=== PATIENT | female | born 1980 | race Caucasian/White ===

== ENCOUNTER → 2017-10-25 | Outpatient (CLI) | payer OTHER ==
--- NOTE | 2017-10-25 08:15 | US ---
EXAMINATION TYPE: US abdomen limited DATE OF EXAM: 10/25/2017 COMPARISON: CTA chest January 30, 2012 CLINICAL HISTORY: R94.5 Abn liver function test R22.32 Left arm mass. Elevated LFT's EXAM MEASUREMENTS: Liver Length: 15.5 cm Gallbladder Wall: 0.2 cm CBD: 0.4 cm Right Kidney: 11.0 x 4.8 x 4.9 cm Larger pt body habitus and pt very gassy, somewhat difficult exam Pancreas: Body wnl, head and tail obscured by overlying bowel gas Liver: Visualized portions appeared heterogeneous Gallbladder: Lumen clear, multiple folds Evidence for sonographic Lyn's sign: No CBD: wnl Right Kidney: Visualized portions appeared wnl Pancreas is suboptimally evaluated on images saved secondary to shadowing from overlying bowel gas. V isualized liver is heterogeneously hyperechoic likely reflecting mild diffuse fatty infiltration. No suspicious masses or ductal dilatation is seen on images saved. Gallbladder is seen with infolding bu t no shadowing mobile gallstones. Limited images right kidney show no gross hydronephrosis. IMPRESSION: Suboptimal study, suspect persistent mild diffuse fatty infiltration of liver. Imaging gu ided random biopsy for tissue analysis can be performed if desired.
--- NOTE | 2017-10-25 08:16 | US ---
EXAMINATION TYPE: US extremity nonvasc mass LT DATE OF EXAM: 10/25/2017 COMPARISON: NONE CLINICAL HISTORY: R94.5 Abn liver function test R22.32 Left arm mass. Pt states palpable lump left me dial upper arm x >1 year/ Pt states history of lipomas and lipoma removal Multiple (up to 3) hyperechoic lesions left medial upper arm at pt's palpable 1)= 1.4 x 0.7 cm (lar gest), 2)= 0.8 x 0.7 cm 3)= 1.1 x 0.6 cm In the subcutaneous tissue just below dermal layer there are poorly defined hyperechoic lesions likel y reflecting subcutaneous lipomas measured by technologist as detailed above. IMPRESSION: As above
== END | disposition home or self-care (01) ==
LOC: RADUSWWP 07:28
PROVIDERS: ATTEND Internal Medicine
DX: R94.5 Abnormal results of liver function studies (principal); R22.32 Localized swelling, mass and lump, left upper limb
CPT/HCPCS: 76705

== ENCOUNTER → 2019-12-19 | Outpatient (CLI) | payer OTHER ==
[2019-12-19 20:50] LABS: T4, Free (Free Thyroxine) 1.2 ng/dL (0.80-1.80)
[2019-12-19 21:03] LABS: Albumin 4.1 g/dL (3.80-4.90); Albumin/Globulin Ratio 1.52 (1.60-3.17); Bilirubin, Conjugated 0.3 mg/dL (0.20-0.40); Bilirubin,Unconjugated 0.5 mg/dL; Globulin 2.7 g/dL (1.6-3.3); Total Bilirubin 0.8 mg/dL (0.2-1.2); Total Protein 6.8 g/dL (6.2-8.2)
[2019-12-19 21:53] LABS: Hemoglobin A1C 8.1 % (4.0-6.0)
[2019-12-21 21:41] LABS: Hepatitis A Antibody IgM Non-Reactive (Non-Reactive); Hepatitis B Core IgM Non-Reactive (Non-Reactive); Hepatitis B Surface Antigen Non-Reactive (Non-Reactive); Hepatitis C IgG Antibody Non-Reactive (Non-Reactive)
== END | disposition home or self-care (01) ==
LOC: LABWHC1 10:59
PROVIDERS: ATTEND Internal Medicine
DX: E11.9 Type 2 diabetes mellitus without complications (principal); E66.9 Obesity, unspecified; R94.5 Abnormal results of liver function studies
CPT/HCPCS: 36415; 80074; 80076; 83036; 84439; 84443; 84481

== ENCOUNTER → 2020-01-04 | Outpatient (CLI) | payer OTHER ==
[2020-01-04 13:38] LABS: Basophils # (A) 0.1 k/uL (0-0.2); Basophils % (A) 1 %; Eosinophils # (A) 0.1 k/uL (0-0.7); Eosinophils % (A) 1 %; HCT 43.6 % (34.0-46.0); HGB 14.7 gm/dL (11.4-16.0); Lymphocytes # (A) 2.1 k/uL (1.0-4.8); Lymphocytes % (A) 27 %; MCH 29.3 pg (25.0-35.0); MCHC 33.6 g/dL (31.0-37.0); Mean Platelet Volume 8.7; Monocytes # (A) 0.3 k/uL (0-1.0); Monocytes % (A) 4 %; Neutrophils % (A) 66 %; Platelet Count 238 k/uL (150-450); RBC 5.01 m/uL (3.80-5.40); RDW 13.2 % (11.5-15.5); WBC 7.6 k/uL (3.8-10.6)
[2020-01-04 13:45] LABS: ALT 205 U/L (4-34); AST 150 U/L (14-36); African American GFR (CKD) >90 (>60 ml/min/1.73 sqM); Albumin 4.1 g/dL (3.5-5.0); Alkaline Phosphatase 80 U/L (38-126); Anion Gap 9 mmol/L; Blood Urea Nitrogen 10 mg/dL (7-17); Calcium 9.1 mg/dL (8.4-10.2); Carbon Dioxide 24 mmol/L (22-30); Chloride 104 mmol/L (98-107); Glucose 134 mg/dL (74-99); INR 1.1 (<1.2); Non-African American GFR(CKD) >90 (>60 ml/min/1.73 sqM); Potassium 4.1 mmol/L (3.5-5.1); Sodium 137 mmol/L (137-145); Total Bilirubin 1.4 mg/dL (0.2-1.3); Total Protein 7.3 g/dL (6.3-8.2)
[2020-01-04 19:24] LABS: Protein, Total 6.9 g/dL (6.2-8.2)
[2020-01-04 19:25] LABS: % Iron Saturation 35.67 (12.00-45.00); Iron 127 ug/dL (50-170); Total Iron Binding Capacity 356 ug/dL (228-460)
[2020-01-04 20:22] LABS: Hepatitis A Antibody IgM Non-Reactive (Non-Reactive); Hepatitis B Core IgM Non-Reactive (Non-Reactive); Hepatitis B Surface Antigen Non-Reactive (Non-Reactive); Hepatitis C IgG Antibody Non-Reactive (Non-Reactive)
[2020-01-05 10:02] LABS: Ceruloplasmin 32.9 mg/dL (20.0-60.0)
[2020-01-07 12:28] LABS: Albumin 3.87 g/dL (3.80-4.90)
[2020-01-07 14:26] LABS: Liver/Kidney Microsome Antibod 1.1 UNITS (<=20)
== END | disposition home or self-care (01) ==
LOC: LABT 11:26
PROVIDERS: ATTEND Nurse Practitioner
DX: R74.8 Abnormal levels of other serum enzymes (principal)
CPT/HCPCS: 80053; 80074; 81596; 82103; 82390; 82728; 83516; 83540; 83550; 84165; 85025; 85610; 86038; 86376

== ENCOUNTER → 2020-01-23 | Outpatient (CLI) | payer OTHER ==
--- NOTE | 2020-01-23 13:28 | US ---
EXAMINATION TYPE: US liver DATE OF EXAM: 01/23/2020 COMPARISON: NONE CLINICAL HISTORY: R74.8 ABN LIVER ENZYMES. EXAM MEASUREMENTS: Liver Length: 17.3 cm Gallbladder Wall: 0.2 cm CBD: 0.3 cm Right Kidney: 11.0 x 4.8 x 5.5 cm Extensive midline bowel gas, morbidly obese patient. Technically difficult study. Pancreas: Tail obscured by overlying bowel gas Liver: Increased attenuation, decreased visualization of vessels suggestive of fatty infiltrate Gallbladder: wnl Evidence for sonographic Lyn's sign: no CBD: wnl Right Kidney: wnl IMPRESSION: 1. Visualized abdomen ultrasound is unremarkable. There is limitation bowel gas.
== END | disposition home or self-care (01) ==
LOC: RADUSWWP 08:16
PROVIDERS: ATTEND Internal Medicine Gastroenterology
DX: R14.3 Flatulence (principal)
CPT/HCPCS: 76705

== ENCOUNTER 2020-07-14 21:51 | Emergency (ER) | payer OTHER ==
[2020-07-14] MEDS ORDERED: DIAZEPAM 5 MG/ML 2 ML INJ IM ONE (22:15)
[2020-07-14] MEDS ORDERED: HYDROmorphone 1 MG/ML 1 ML SYRINGE IM STA (22:15)
[2020-07-14] MEDS ORDERED: KETOROLAC 15 MG/ML 1 ML VIAL IM STA (22:15)
--- NOTE | 2020-07-14 22:38 | ED ---
Back Pain HPI - General Chief Complaint: Back Pain/Injury Stated Complaint: Back pain Time Seen by Provider: 07/14/20 22:02 Source: patient Limitations: no limitations - History of Present Illness Initial Comments: 40 year-old female patient presents to the emergency department for evaluation of back pain from the lower thoracic level down to the low back. She reports radiation down the back of both legs to her knee. She denies numbness or tingling to the lower extremities. Denies saddle anesthesia or loss of bowel or bladder control. Did symptoms started on Tuesday with pain to the left low back is radiating down the left leg. States he has been adjustment by the chiropractor today and afterwards her pain seemed to worsen and now is going down both legs. Denies fever but states she has been chilled. Denies any hematuria, dysuria, urinary frequency, urinary urgency. States that the pain is at its worst she does have some nausea. Denies vomiting. Denies constipation or diarrhea. Denies any abdominal pain. Patient denies any recent rash, cough, shortness of breath, chest pain, dizziness, weakness, headache, visual changes, or any other complaints. - Related Data Home Medications Medication Instructions Recorded Confirmed Ibuprofen [Motrin Ib] 400 - 600 mg PO Q4-6H PRN 07/14/20 07/14/20 Previous Rx's Medication Instructions Recorded Cyclobenzaprine [Flexeril] 10 mg PO TID #20 tab 07/14/20 Allergies Allergy/AdvReac Type Severity Reaction Status Date / Time No Known Allergies Allergy Verified 07/14/20 22:29 Review of Systems ROS Statement: Those systems with pertinent positive or pertinent negative responses have been documented in the HPI. ROS Other: All systems not noted in ROS Statement are negative. Past Medical History Past Medical History: No Reported History History of Any Multi-Drug Resistant Organisms: None Reported Past Surgical History: Section Past Psychological History: Depression Smoking Status: Never smoker Past Alcohol Use History: Rare Past Drug Use History: None Reported General Exam Limitations: no limitations General appearance: alert, in no apparent distress, other (This is a well- developed, well-nourished adult female patient in no acute distress. Vital signs upon presentation are temperature 99.6F, pulse 88, respirations 20, blood pressure 144/43, pulse ox 98% on room air.) Eye exam: Present: normal appearance, PERRL, EOMI. Absent: scleral icterus, conjunctival injection, periorbital swelling ENT exam: Present: normal exam, normal oropharynx, mucous membranes moist Respiratory exam: Present: normal lung sounds bilaterally. Absent: respiratory distress, wheezes, rales, rhonchi, stridor Cardiovascular Exam: Present: regular rate, normal rhythm, normal heart sounds. Absent: systolic murmur, diastolic murmur, rubs, gallop, clicks GI/Abdominal exam: Present: soft, normal bowel sounds. Absent: distended, tenderness, guarding, rebound, rigid Extremities exam: Present: normal inspection, full ROM, normal capillary refill, other (Skin to the lower extremities is pink, warm, dry. Cap refills less than 3 seconds. Pedal and posttibial pulses are 2+ and equal bilaterally.). Absent: tenderness, pedal edema, joint swelling, calf tenderness Back exam: Present: normal inspection. Absent: vertebral tenderness Neurological exam: Present: alert, oriented X3, CN II-XII intact Psychiatric exam: Present: normal affect, normal mood Skin exam: Present: warm, dry, intact, normal color. Absent: rash Course Vital Signs 07/14/20 21:55 Temperature 99.6 F Pulse Rate 88 Respiratory 20 Rate Blood Pressure 144/43 O2 Sat by Pulse 98 Oximetry Medical Decision Making - Medical Decision Making 40-year-old female patient presented to the emergency department today for evaluation of increased back pain. Reported pain radiating from the lower thoracic level down to her bilateral hips and down to the backs of her knees. She denies any injury. Physical examination is relatively unremarkable. She had no vertebral tenderness. No CVA tenderness. Neurovascular status was intact to the lower extremities. She is afebrile normal vital signs. Urinalysis was obtained and did have greater than 182 red blood cells though patient is on her period. There is no presence of bacteria or leukocyte esterase concerning for infection. She was given IM medications for symptom relief. Upon reevaluation she is resting comfortably in bed area and she states all of her symptoms have resolved. She'll be discharged. Her primary care physician for recheck in 1-2 days. She is instructed to follow-up with the technical sales support specialist if her symptoms do not improve over the next week. She is instructed to return for any new, worsening, or concerning symptoms. She verbalizes understanding and agrees with this plan. - Lab Data Lab Results 07/14/20 07/14/20 Range/Units 22:41 22:41 Urine Color Red Urine Appearance Clear (Clear) Urine pH 7.5 (5.0-8.0) Ur Specific [place] 1.013 (1.001-1.035) Urine Protein 1+ H (Negative) Urine Glucose (UA) 4+ H (Negative) Urine Ketones Negative (Negative) Urine Blood Large H (Negative) Urine Nitrite Negative (Negative) Urine Bilirubin Negative (Negative) Urine Urobilinogen <2.0 (<2.0) mg/dL Ur Leukocyte Esterase Trace H (Negative) Urine RBC >182 H (0-5) /hpf Urine WBC 1 (0-5) /hpf Urine HCG, Qual Not Detected (Not Detectd) Disposition Clinical Impression: Lumbar radiculopathy, Low back pain Disposition: HOME SELF-CARE Condition: Good Instructions (If sedation given, give patient instructions): Acute Low Back Pain (ED), Lumbar Radiculopathy (ED), Lower Back Exercises (ED) Additional Instructions: Take medications as directed. Follow up with your primary care physician for recheck in 1-2 days. If pain symptoms persist follow-up with technical sales support specialist. Return to the emergency department for any new, worsening, or concerning symptoms. Prescriptions: Cyclobenzaprine [Flexeril] 10 mg PO TID #20 tab Is patient prescribed a controlled substance at d/c from ED?: No Referrals: Devon Glover MD [Primary Care Provider] - 1-2 days Sophia Rojas DO [Doctor of Osteopathic Medicine] - 1-2 days Time of Disposition: 23:24
[2020-07-14 22:53] LABS: Appearance,Urine Clear (Clear); Bilirubin,Urine Negative (Negative); Blood,Urine Large (Negative); Color,Urine Red; Glucose,Urine (UA) 4+ (Negative); Ketones,Urine Negative (Negative); Leukocyte Esterase,Urine Trace (Negative); Nitrite,Urine Negative (Negative); PH, Urine 7.5 (5.0-8.0); Protein,Urine 1+ (Negative); RBC,Urine >182 /hpf (0-5); Specific Gravity,Urine 1.013 (1.001-1.035); Urobilinogen,Urine <2.0 mg/dL (<2.0); WBC,Urine 1 /hpf (0-5)
[2020-07-14] MEDS ORDERED: ACET/COD 300 MG/30 MG STARTER PACK 6 TAB BTL PO STA (23:24)
[2020-07-14] MEDS ORDERED: CYCLOBENZAPRINE 10MG STARTER 3 TAB BTL PO STA (23:24)
[2020-07-14 23:43] VITALS: BP 121/78; PULSE 85; RESP 18; TEMP 99
== END 2020-07-14 23:43 | disposition home or self-care (01) ==
LOC: EC 21:51
DX: M54.16 Radiculopathy, lumbar region (principal)
CPT/HCPCS: 81001; 81025; 99283; 96372 ×3; J3360; J1170; J1885

== ENCOUNTER → 2022-12-13 | Outpatient (CLI) | payer OTHER ==
--- NOTE | 2022-12-13 08:04 | US ---
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 IMPRESSION: No thyroid nodules, thyroid gland is within normal limits for size.
== END | disposition home or self-care (01) ==
LOC: RADUSWWP 07:28
PROVIDERS: ATTEND Family Medicine
DX: E01.0 Iodine-deficiency related diffuse (endemic) goiter (principal)
CPT/HCPCS: 76536

== ENCOUNTER 2023-01-23 19:09 | Emergency (ER) | payer OTHER ==
[2023-01-23 19:31] VITALS: TEMP 98.2
[2023-01-23] MEDS ORDERED: ACETAMINOPHEN TAB 500 MG TAB PO STA (21:00)
--- NOTE | 2023-01-23 21:07 | ED ---
Chest Pain HPI - General Chief Complaint: Chest Pain Stated Complaint: Chest Pain/Back Pain Time Seen by Provider: 01/23/23 20:47 Source: patient Mode of arrival: ambulatory Limitations: no limitations - History of Present Illness Initial Comments: -year-old female with past medical history significant for type 2 diabetes presents to ED with a chief complaint of "everything hurts". Patient states approximately 5 days ago started to experience pain of her upper chest and back that has been worsening in severity. Pain is sharp in nature. Additionally states that since onset of this feels like the joints of her hands and legs are "stiff and weak". No alleviating or aggravating doctors. Has been taking ibuprofen and Tylenol with no relief of symptoms. No other complaints. Denies shortness of breath - Related Data Home Medications Medication Instructions Recorded Confirmed Ibuprofen [Motrin Ib] 400 - 600 mg PO Q4-6H PRN 07/14/20 07/14/20 Previous Rx's Medication Instructions Recorded Cyclobenzaprine [Flexeril] 10 mg PO TID #20 tab 07/14/20 Allergies Allergy/AdvReac Type Severity Reaction Status Date / Time No Known Allergies Allergy Verified 01/23/23 19:31 Review of Systems ROS Statement: Those systems with pertinent positive or pertinent negative responses have been documented in the HPI. ROS Other: All systems not noted in ROS Statement are negative. Past Medical History Past Medical History: Diabetes Mellitus History of Any Multi-Drug Resistant Organisms: None Reported Past Surgical History: Section Past Psychological History: Depression Smoking Status: Never smoker Past Alcohol Use History: Occasional Past Drug Use History: None Reported General Exam Limitations: no limitations General appearance: alert Respiratory exam: Present: normal lung sounds bilaterally, other (Reducible chest wall tenderness to palpation.) Cardiovascular Exam: Present: regular rate, normal rhythm GI/Abdominal exam: Present: soft (No tenderness palpation. No rebound guarding or rigidity.) Neurological exam: Present: alert, oriented X3 Psychiatric exam: Present: anxious Skin exam: Present: warm, dry Course Vital Signs 01/23/23 19:24 Temperature 98.2 F Pulse Rate 89 Respiratory 21 Rate Blood Pressure 140/88 O2 Sat by Pulse 98 Oximetry Chest Pain MDM - MDM Was pt. sent in by a medical professional or institution (, PA, EMBEDDED FIRMWARE ENGINEER, urgent care, hospital, or residential...) When possible be specific @ -No Did you speak to anyone other than the patient for history (EMS, parent, family, police, friend...)? What history was obtained from this source @ -No Did you review nursing and triage notes (agree or disagree)? Why? @ -I reviewed and agree with nursing and triage notes Were old charts reviewed (outside hosp., previous admission, EMS record, old EKG, old radiological studies, urgent care reports/EKG's, residential records)? Report findings @ -No old charts were reviewed Differential Diagnosis (chest pain, altered mental status, abdominal pain women, abdominal pain men, vaginal bleeding, weakness, fever, dyspnea, syncope, headache, dizziness, GI bleed, back pain, seizure, CVA, palpatations, mental health, musculoskeletal)? @ -Differential Chest Pain: Stable Angina, Unstable Angina, STEMI, NSTEMI Aortic Dissection, Pneumothorax, Musculoskeletal, Esophageal Spasm GERD, Cholecystitis, Pancreatitis, Zoster, this is not meant to be an all-inclusive list. EKG interpreted by me (3pts min.). @ -EKG shows a sinus rhythm without acute ST or T-wave changes at 73 beats for minute. ND 135, QRS 86, QT/QTc 400/426. X-rays interpreted by me (1pt min.). @ -Chest x-ray showed no acute process CT interpreted by me (1pt min.). @ -None done U/S interpreted by me (1pt. min.). @ -None done What testing was considered but not performed or refused? (CT, X-rays, U/S, labs)? Why? @ -None What meds were considered but not given or refused? Why? @ -None Did you discuss the management of the patient with other professionals (professionals i.e. , PA, EMBEDDED FIRMWARE ENGINEER, lab, RT, psych nurse, geriatric social worker, gymnastic teacher, teacher, safety instruction police officer, case assistant)? Give summary @ -No Was smoking cessation discussed for >3mins.? @ -No Was critical care preformed (if so, how long)? @ -No Were there social determinants of health that impacted care today? How? (Homelessness, low income, unemployed, alcoholism, drug addiction, transportation, low edu. Level, literacy, decrease access to med. care, senior care, rehab)? @ -No Was there de-escalation of care discussed even if they declined (Discuss DNR or withdrawal of care, Hospice)? DNR status @ -No What co-morbidities impacted this encounter? (DM, HTN, Smoking, COPD, CAD, Cancer, CVA, ARF, Chemo, Hep., AIDS, mental health diagnosis, sleep apnea, morbid obesity)? @ -None Was patient admitted / discharged? Hospital course, mention meds given and route, prescriptions, significant lab abnormalities, going to OR and other pertinent info. @ -Discharge. EKG here shows no evidence of ischemia. Laboratory studies largely unremarkable including troponin. Some mild elevation of her CRP however nonspecific. Imaging studies unremarkable. Patient will be discharged home with instructions to follow up with her PCP. Discussed return precautions with patient who verbalizes agreement. Undiagnosed new problem with uncertain prognosis? @ -No Drug Therapy requiring intensive monitoring for toxicity (Heparin, Nitro, Insulin, Cardizem)? @ -No Were any procedures done? @ -No Diagnosis/symptom? @ -Myalgia Acute, or Chronic, or Acute on Chronic? @ -Acute Uncomplicated (without systemic symptoms) or Complicated (systemic symptoms)? @ -Uncomplicated Side effects of treatment? @ -No Exacerbation, Progression, or Severe Exacerbation? @ -No Poses a threat to life or bodily function? How? (Chest pain, [place], [place], pneumonia, PE, COPD, DKA, ARF, appy, cholecystitis, CVA, Diverticulitis, Homicidal, Suicidal, threat to staff... and all critical care pts) @ -No Disposition Clinical Impression: Myalgia Disposition: HOME SELF-CARE Condition: Good Instructions (If sedation given, give patient instructions): Musculoskeletal Pain (ED), Chest Pain (ED) Is patient prescribed a controlled substance at d/c from ED?: No Referrals: Olivia Meneses MD [Primary Care Provider] - 1-2 days Time of Disposition: 23:12
--- NOTE | 2023-01-23 21:44 | XR ---
EXAMINATION TYPE: XR chest 2V DATE OF EXAM: 01/23/2023 9:41 PM COMPARISON: Chest radiographs from 01/30/2012 TECHNIQUE: XR chest 2V Frontal and lateral views of the chest. CLINICAL INDICATION:Female, 42 years old with history of Chest Pain; FINDINGS: Lungs/Pleura: There is no evidence of pleural effusion, focal consolidation, or pneumothorax. Pulmonary vascularity: Unremarkable. Heart/mediastinum: Cardiomediastinal silhouette is prominent in size. Musculoskeletal: No acute osseous pathology. IMPRESSION: No acute cardiopulmonary disease/process.
[2023-01-23 21:55] LABS: Basophils % (A) 0 %; Eosinophils # (A) 0.4 k/uL (0-0.7); Eosinophils % (A) 4 %; HCT 41.2 % (34.0-46.0); HGB 13.8 gm/dL (11.4-16.0); Lymphocytes # (A) 2.1 k/uL (1.0-4.8); Lymphocytes % (A) 20 %; MCH 28.7 pg (25.0-35.0); MCHC 33.5 g/dL (31.0-37.0); MCV 85.6 fL (80.0-100.0); Mean Platelet Volume 8.9; Monocytes # (A) 0.4 k/uL (0-1.0); Monocytes % (A) 4 %; Neutrophils # (A) 7.2 k/uL (1.3-7.7); Neutrophils % (A) 71 %; Platelet Count 209 k/uL (150-450); RBC 4.81 m/uL (3.80-5.40); RDW 13.5 % (11.5-15.5); WBC 10.1 k/uL (3.8-10.6)
[2023-01-23 22:08] LABS: Partial Thromboplastin Time 24.7 sec (22.0-30.0)
[2023-01-23 22:17] LABS: ALT 36 U/L (4-34); AST 32 U/L (14-36); African American GFR (CKD) >90 (>60 ml/min/1.73 sqM); Albumin 3.7 g/dL (3.5-5.0); Alkaline Phosphatase 87 U/L (38-126); Amylase 46 U/L (30-110); Anion Gap 6 mmol/L; Blood Urea Nitrogen 12 mg/dL (7-17); C Reactive Protein 4.9 mg/dL (<1.0); Calcium 8.8 mg/dL (8.4-10.2); Carbon Dioxide 26 mmol/L (22-30); Chloride 102 mmol/L (98-107); Glucose 126 mg/dL (74-99); Lipase 52 U/L (23-300); Magnesium 1.9 mg/dL (1.6-2.3); Non-African American GFR(CKD) >90 (>60 ml/min/1.73 sqM); Potassium 3.9 mmol/L (3.5-5.1); Sodium 134 mmol/L (137-145); Total Protein 7.4 g/dL (6.3-8.2)
[2023-01-23 22:46] LABS: Appearance,Urine Clear (Clear); Bilirubin,Urine Negative (Negative); Blood,Urine Negative (Negative); Color,Urine Yellow; Glucose,Urine (UA) 1+ (Negative); Ketones,Urine 1+ (Negative); Leukocyte Esterase,Urine Negative (Negative); Nitrite,Urine Negative (Negative); PH, Urine 5.5 (5.0-8.0); Protein,Urine Trace (Negative); Specific Gravity,Urine >1.030 (1.001-1.035)
[2023-01-23 23:03] LABS: RBC,Urine 0 /hpf (0-5); WBC,Urine 0 /hpf (0-5)
[2023-01-23 23:04] LABS: Mucus,Urine Few /hpf; Squamous Epithelial Cell,Urine 28 /hpf (0-4)
[2023-01-23 23:25] VITALS: RESP 18
[2023-01-23 23:26] VITALS: BP 106/65; PULSE 73
== END 2023-01-23 23:27 | disposition home or self-care (01) ==
LOC: EC 19:09
DX: M79.10 Myalgia, unspecified site (principal); E11.9 Type 2 diabetes mellitus without complications; Z79.1 Long term (current) use of non-steroidal anti-inflammatories (NSAID); Z86.59 Personal history of other mental and behavioral disorders
CPT/HCPCS: 36415; 71046; 80053; 81003; 82150; 83690; 83735; 84484; 85025; 85610; 85730; 86140; 99285

== ENCOUNTER 2023-01-26 10:11 | Observation (INO) | payer OTHER ==
--- NOTE | 2023-01-26 12:18 | ED ---
General Adult HPI - General Chief complaint: Recheck/Abnormal Lab/Rx Stated complaint: all over pain,sent by PCP Time Seen by Provider: 01/26/23 11:39 Source: patient Mode of arrival: ambulatory Limitations: no limitations - History of Present Illness Initial comments: 4-year-old female presents to the ED with a chief complaint of body pain. Patient initially here on 01/23/23. At that time patient was noting myalgias. Patient states initially started to experience chest and back pain. However states since onset over a week started to develop "weakness and stiffness" of the hands. Patient was eventually discharged after workup here with an unremarkable chest x-ray. At that time also had findings of elevated CRP of 4.9, otherwise unremarkable laboratory workup. At that time EKG showed a normal sinus rhythm without acute ST-T wave changes. Since then, states that she saw her PCP. Patient states symptoms have been worsening and she has started to develop a rash on her elbows and right knee which are itchy. No other complaints. - Related Data Home Medications Medication Instructions Recorded Confirmed Ibuprofen [Motrin Ib] 400 - 600 mg PO Q4-6H PRN 07/14/20 07/14/20 Previous Rx's Medication Instructions Recorded Cyclobenzaprine [Flexeril] 10 mg PO TID #20 tab 07/14/20 Allergies Allergy/AdvReac Type Severity Reaction Status Date / Time No Known Allergies Allergy Verified 01/26/23 10:15 Review of Systems ROS Statement: Those systems with pertinent positive or pertinent negative responses have been documented in the HPI. ROS Other: All systems not noted in ROS Statement are negative. Past Medical History Past Medical History: Diabetes Mellitus History of Any Multi-Drug Resistant Organisms: None Reported Past Surgical History: Section Past Psychological History: Depression Smoking Status: Never smoker Past Alcohol Use History: Occasional Past Drug Use History: None Reported General Exam Limitations: no limitations General appearance: alert, in distress Head exam: Present: atraumatic, normocephalic Eye exam: Present: normal appearance Respiratory exam: Present: normal lung sounds bilaterally Cardiovascular Exam: Present: regular rate, normal rhythm GI/Abdominal exam: Present: soft Extremities exam: Present: other (Neck) Neurological exam: Present: alert, oriented X3 Skin exam: Present: other (Maculopapular rash on the bilateral elbows and right knee. Blanches with pressure.) Course Vital Signs 01/26/23 10:13 Temperature 98.1 F Pulse Rate 104 H Respiratory 18 Rate Blood Pressure 132/87 O2 Sat by Pulse 98 Oximetry Medical Decision Making - Medical Decision Making Was pt. sent in by a medical professional or institution (LEONARD Sr, KNITTED GOODS SHAPER, urgent care, hospital, or retirement...) When possible be specific @ -No Did you speak to anyone other than the patient for history (EMS, parent, family, police, friend...)? What history was obtained from this source @ -No Did you review nursing and triage notes (agree or disagree)? Why? @ -I reviewed and agree with nursing and triage notes Were old charts reviewed (outside hosp., previous admission, EMS record, old EKG, old radiological studies, urgent care reports/EKG's, retirement records)? Report findings @ -No old charts were reviewed Differential Diagnosis (chest pain, altered mental status, abdominal pain women, abdominal pain men, vaginal bleeding, weakness, fever, dyspnea, syncope, headache, dizziness, GI bleed, back pain, seizure, CVA, palpatations, mental health, musculoskeletal)? @ -Scleroderma, rheumatoid arthritis, lupus, polymyositis, dermatomyositis. This is not meant to be an all-inclusive list. EKG interpreted by me (3pts min.). @ -None X-rays interpreted by me (1pt min.). @ -None done CT interpreted by me (1pt min.). @ -None done U/S interpreted by me (1pt. min.). @ -None done What testing was considered but not performed or refused? (CT, X-rays, U/S, labs)? Why? @ -None What meds were considered but not given or refused? Why? @ -None Did you discuss the management of the patient with other professionals (professionals i.e. LEONARD Sr, KNITTED GOODS SHAPER, lab, RT, psych nurse, social service manager, emergency response technician, teacher, aerospace engineer officer armament, case technician)? Give summary @ -Spoke with Dr. Berry, who advised that she attempted to do a direct admit however was unable to do so. States that she would like the patient admitted for pain control with consults to rheumatology and dermatology to rule out autoimmune disorder. Discussed with Dr. downs who accepts admission Was smoking cessation discussed for >3mins.? @ -No Was critical care preformed (if so, how long)? @ -No Were there social determinants of health that impacted care today? How? (Homelessness, low income, unemployed, alcoholism, drug addiction, transportation, low edu. Level, literacy, decrease access to med. care, senior care, rehab)? @ -No Was there de-escalation of care discussed even if they declined (Discuss DNR or withdrawal of care, Hospice)? DNR status @ -No What co-morbidities impacted this encounter? (DM, HTN, Smoking, COPD, CAD, Cancer, CVA, ARF, Chemo, Hep., AIDS, mental health diagnosis, sleep apnea, morbid obesity)? @ -None Was patient admitted / discharged? Hospital course, mention meds given and route, prescriptions, significant lab abnormalities, going to OR and other pertinent info. @ -Admission. Laboratory studies at this time pending however CRP, ESR, CPK, RACHEL, C3, C4, TSH, CBC, CMP ordered. She will be admitted for pain control and possible consults to Derm/rheumatology. Discussed plan of care with patient who is in agreement. Undiagnosed new problem with uncertain prognosis? @ -No Drug Therapy requiring intensive monitoring for toxicity (Heparin, Nitro, Insulin, Cardizem)? @ -No Were any procedures done? @ -No Diagnosis/symptom? @ -Myalgias with rash Acute, or Chronic, or Acute on Chronic? @ -Acute Uncomplicated (without systemic symptoms) or Complicated (systemic symptoms)? @ -Uncomplicated Side effects of treatment? @ -No Exacerbation, Progression, or Severe Exacerbation? @ -No Poses a threat to life or bodily function? How? (Chest pain, [place], [place], pneumonia, PE, COPD, DKA, ARF, appy, cholecystitis, CVA, Diverticulitis, Homicidal, Suicidal, threat to staff... and all critical care pts) @ -No Disposition Clinical Impression: Myalgia, Rash Disposition: ADMITTED IP TO THIS HOSP Condition: Good Referrals: Olivia Meneses MD [Primary Care Provider] - 1-2 days Time of Disposition: 12:30
[2023-01-26] MEDS ORDERED: MORPHINE SULFATE 4 MG/ML SYRINGE IVP STA (12:28)
[2023-01-26] MEDS ORDERED: ACETAMINOPHEN TAB 325 MG TAB PO PRN (12:42)
[2023-01-26] MEDS ORDERED: NALOXONE 0.4 MG/ML 1 ML VIAL IV PRN (12:42)
[2023-01-26] MEDS ORDERED: ONDANSETRON 4 MG/2 ML VIAL IVP PRN (12:42)
[2023-01-26] MEDS: SODIUM CHLORIDE 0.9% 1,000 ML IV SCH ×2 (13:13→23:22)
[2023-01-26 13:37] LABS: Basophils % (A) 0 %; Eosinophils # (A) 0.3 k/uL (0-0.7); Eosinophils % (A) 4 %; HCT 41.6 % (34.0-46.0); Lymphocytes # (A) 1.4 k/uL (1.0-4.8); Lymphocytes % (A) 15 %; MCHC 33.6 g/dL (31.0-37.0); MCV 86.3 fL (80.0-100.0); Mean Platelet Volume 8.3; Monocytes # (A) 0.4 k/uL (0-1.0); Monocytes % (A) 4 %; Neutrophils # (A) 7.1 k/uL (1.3-7.7); Neutrophils % (A) 75 %; Platelet Count 219 k/uL (150-450); RBC 4.82 m/uL (3.80-5.40); RDW 13.5 % (11.5-15.5); WBC 9.4 k/uL (3.8-10.6)
[2023-01-26 14:10] LABS: Potassium 4.6 mmol/L (3.5-5.1)
[2023-01-26 14:13] LABS: ALT 30 U/L (4-34); AST 32 U/L (14-36); African American GFR (CKD) >90 (>60 ml/min/1.73 sqM); Albumin 3.8 g/dL (3.5-5.0); Alkaline Phosphatase 89 U/L (38-126); Anion Gap 11 mmol/L; Blood Urea Nitrogen 7 mg/dL (7-17); C Reactive Protein 4.5 mg/dL (<1.0); Carbon Dioxide 23 mmol/L (22-30); Chloride 101 mmol/L (98-107); Glucose 147 mg/dL (74-99); Non-African American GFR(CKD) >90 (>60 ml/min/1.73 sqM); Sodium 135 mmol/L (137-145); Total Bilirubin 1.1 mg/dL (0.2-1.3); Total Protein 7.5 g/dL (6.3-8.2)
[2023-01-26] MEDS ORDERED: DEXTROSE 50% SYRINGE 50 ML IVP PRN ×2 (15:30)
--- NOTE | 2023-01-26 15:32 | P.HPIM ---
History of Present Illness H&P Date: 01/26/23 This is a 42-year-old female with medical history of diabetes who was sent in from Dr. Manjarrez's office for admission and evaluation. Patient's main complaint is joint pain and stiffness and muscle weakness progressive over the last week. Patient reports the pain started in her mid back went to see a chiropractor without relief in symptoms since then the pain has spread. She is having swelling in her left knee, behind her right leg and also in her right hand and the finger joints. Additionally patient has reported a rash which is most prominent on her bilateral knees and her right elbow which is vesicular in nature. She reports feeling so weak at home and her is having to assist her in care for all of her activities of daily living and the pain is not improving. Patient is admitted to the hospital under medicine observation status recommended for patient to be evaluated by rheumatology. Possibility of patient having a condition such as dermatomyositis. Denies chest pain, denies shortness of breath. No nausea vomiting or diarrhea. Denies recent illness however does have inflammed pharynx and reports sore throat. No fever. REVIEW OF SYSTEMS: CONSTITUTIONAL: No fever, no malaise, no fatigue. HEENT: No recent visual problems or hearing problems. Denied any sore throat. CARDIOVASCULAR: No chest pain, orthopnea, PND, no palpitations, no syncope. PULMONARY: No shortness of breath, no cough, no hemoptysis. GASTROINTESTINAL: No diarrhea, no nausea, no vomiting, no abdominal pain. NEUROLOGICAL: No headaches, no weakness, no numbness. HEMATOLOGICAL: Denies any bleeding or petechiae. GENITOURINARY: Denies any burning micturition, frequency, or urgency. MUSCULOSKELETAL/RHEUMATOLOGICAL: Denies any joint pain, swelling, or any muscle pain. ENDOCRINE: Denies any polyuria or polydipsia. The rest of the 14-point review of systems is negative. PHYSICAL EXAMINATION: GENERAL: The patient is alert and oriented x3, not in any acute distress. Well developed, well nourished. HEENT: Pupils are round and equally reacting to light. EOMI. No scleral icterus. No conjunctival pallor. Normocephalic, atraumatic. No pharyngeal erythema. No thyromegaly. CARDIOVASCULAR: S1 and S2 present. No murmurs, rubs, or gallops. PULMONARY: Chest is clear to auscultation, no wheezing or crackles. ABDOMEN: Soft, nontender, nondistended, normoactive bowel sounds. No palpable organomegaly. MUSCULOSKELETAL: No joint swelling or deformity. EXTREMITIES: No cyanosis, clubbing, or pedal edema. NEUROLOGICAL: Gross neurological examination did not reveal any focal deficits. SKIN: No rashes. Assessment and plan Multi-joint arthritis with pain and stiffness rule out conditions such as polymyalgia rheumatica however patient also has associated rash mild posterior knees can be associated with a condition like dermatomyositis Diabetes mellitus History of depression Obesity GI prophylaxis DVT prophylaxis Plan Check AMA, sed rate, CRP, CK levels Patient was started on IV steroids 40 mg every 12 hours as well as pain management Cervical thoracic and lumbar x-rays will be taken PT OT is consulted for further evaluation We'll also consult rheumatology for further evaluation The impression and plan of care has been dictated by Britt Craig Nurse Practitioner as directed. Dr. Dipti MD I have performed a history and physical examination and medical decision making of this patient, discussed the same with the dictator, and agree with the dictators assessment and plan as written, documented as a scribe. Based on total visit time, I have performed more than 50% of this visit. Past Medical History Past Medical History: Diabetes Mellitus History of Any Multi-Drug Resistant Organisms: None Reported Past Surgical History: Section Past Psychological History: Depression Smoking Status: Never smoker Past Alcohol Use History: Occasional Past Drug Use History: None Reported Medications and Allergies Home Medications Medication Instructions Recorded Confirmed Type Ibuprofen [Motrin Ib] 800 mg PO Q4-6H PRN 07/14/20 01/26/23 History Acetaminophen Tab [Tylenol Tab] 1,000 mg PO Q6HR PRN 01/26/23 01/26/23 History Dulaglutide [Trulicity] 0.75 mg SQ MO 01/26/23 01/26/23 History Metformin Er 750mg Tab 750 mg PO DAILY 01/26/23 01/26/23 History Allergies Allergy/AdvReac Type Severity Reaction Status Date / Time No Known Allergies Allergy Verified 01/26/23 13:43 Physical Exam Vitals: Vital Signs Temp Pulse Resp BP Pulse Ox 01/26/23 13:37 99.4 F 94 16 118/81 98 01/26/23 10:13 98.1 F 104 H 18 132/87 98 Intake and Output 01/26/23 01/26/23 01/26/23 06:59 14:59 22:59 Other: Weight 108.862 kg Results CBC & Chem 7: 01/26/23 13:00 01/26/23 13:00 Labs: Abnormal Lab Results - Last 24 Hours (Table) 01/26/23 Range/Units 13:00 Sodium 135 L (137-145) mmol/L Creatinine 0.39 L (0.52-1.04) mg/dL Glucose 147 H (74-99) mg/dL C-Reactive Protein 4.5 H (<1.0) mg/dL Assessment and Plan Time with Patient: Greater than 30
[2023-01-26 17:08] LABS: Glucose,Whole Blood 147 mg/dL (70-110)
--- NOTE | 2023-01-26 17:11 | XR ---
EXAMINATION TYPE: XR thoracic spine 2V DATE OF EXAM: 01/26/2023 COMPARISON: None HISTORY: Joint pain and lower extremity weakness TECHNIQUE: 3 view thoracic spine FINDINGS: There 12 thoracic type vertebral bodies. Pedicles are intact. Disc heights are preserved. V ertebral body heights are preserved. Alignment is preserved. IMPRESSION: 1. Normal three-view thoracic spine
--- NOTE | 2023-01-26 17:12 | XR ---
EXAMINATION TYPE: XR cervical spine comp DATE OF EXAM: 01/26/2023 COMPARISON: None available at this time HISTORY: Joint pain lower extremity weakness TECHNIQUE: 5 view cervical spine FINDINGS: Prevertebral space is normal. Disc heights are preserved. Vertebral body heights are [place]. Posterior spinal lamellar line is intact. Foramen are patent. IMPRESSION: 1. No acute osseous abnormality cervical spine
--- NOTE | 2023-01-26 17:13 | XR ---
EXAMINATION TYPE: XR lumbar spine 2 or 3V DATE OF EXAM: 01/26/2023 COMPARISON: None HISTORY: Low back pain lower extremity weakness TECHNIQUE: 3 view lumbar spine FINDINGS: There are 5 lumbar-type vertebral bodies. Pedicles are intact. The L5-S1 disc height is keri rowed. Remaining disc heights are preserved. Vertebral body heights are preserved. IMPRESSION: 1. Degenerative disc change L5-S1
[2023-01-26] MEDS: INSULIN ASPART (NovoLOG) 100 UNIT/ML VIAL SQ SCH ×2 (17:25→20:40)
[2023-01-26] MEDS: HYDROmorphone 1 MG/ML 1 ML SYRINGE IVP PRN ×2 (17:27→22:58)
[2023-01-26 20:23] LABS: Glucose,Whole Blood 170 mg/dL (70-110)
[2023-01-26] MEDS: PANTOPRAZOLE 40 MG/10 ML VIAL IVP SCH (20:40)
[2023-01-26] MEDS: methylPREDNISolone SOD SUCCI 40 MG/ML 1 ML VIAL IV SCH (20:40)
[2023-01-27 06:09] LABS: Glucose,Whole Blood 233 mg/dL (70-110)
[2023-01-27] MEDS: INSULIN ASPART (NovoLOG) 100 UNIT/ML VIAL SQ SCH ×4 (06:39→20:39)
[2023-01-27] MEDS: methylPREDNISolone SOD SUCCI 40 MG/ML 1 ML VIAL IV SCH ×2 (08:15→20:40)
[2023-01-27] MEDS: PANTOPRAZOLE 40 MG/10 ML VIAL IVP SCH ×2 (08:15→20:40)
[2023-01-27] MEDS: HYDROmorphone 1 MG/ML 1 ML SYRINGE IVP PRN ×3 (08:23→22:46)
[2023-01-27] MEDS: SODIUM CHLORIDE 0.9% 1,000 ML IV SCH ×2 (10:23→22:48)
[2023-01-27 11:27] LABS: Glucose,Whole Blood 228 mg/dL (70-110)
[2023-01-27] MEDS: KETOROLAC 15 MG/ML 1 ML VIAL IVP PRN (13:42)
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
[2023-01-27 17:27] LABS: Glucose,Whole Blood 295 mg/dL (70-110)
[2023-01-27 20:17] LABS: Glucose,Whole Blood 327 mg/dL (70-110)
[2023-01-28] MEDS: HYDROmorphone 0.5 MG/0.5 ML SYRINGE IVP PRN ×2 (04:34→08:00)
[2023-01-28] MEDS: SODIUM CHLORIDE 0.9% 1,000 ML IV SCH ×3 (04:59→17:40)
[2023-01-28 06:08] LABS: Glucose,Whole Blood 234 mg/dL (70-110)
[2023-01-28] MEDS: INSULIN ASPART (NovoLOG) 100 UNIT/ML VIAL SQ SCH ×5 (06:47→20:41)
[2023-01-28] MEDS: KETOROLAC 15 MG/ML 1 ML VIAL IVP PRN ×3 (06:51→20:20)
[2023-01-28] MEDS: PANTOPRAZOLE 40 MG/10 ML VIAL IVP SCH (08:01)
[2023-01-28] MEDS: methylPREDNISolone SOD SUCCI 40 MG/ML 1 ML VIAL IV SCH (08:01)
[2023-01-28 09:11] LABS: Basophils # (A) 0.02 X 10*3/uL (0.00-0.10); Basophils % (A) 0.1 %; Eosinophils # (A) 0 X 10*3/uL (0.04-0.35); Eosinophils % (A) 0 %; HCT 37.5 % (37.2-46.3); HGB 12.8 d/dL (12.0-15.0); Lymphocytes # (A) 1.29 X 10*3/uL (0.90-5.00); Lymphocytes % (A) 7.7 %; MCH 28.9 pg (27.0-32.0); MCHC 34.1 d/dL (32.0-37.0); MCV 84.7 FL (80.0-97.0); Mean Platelet Volume 10.8 FL (9.5-12.2); Monocytes # (A) 0.75 X 10*3/uL (0.20-1.00); Monocytes % (A) 4.5 %; NRBC Per 100 WBC 0 X 10*3/uL (0.00-0.01); Neutrophils # (A) 14.52 X 10*3/uL (1.80-7.70); Neutrophils % (A) 87.2 %; Platelet Count 286 X 10*3/uL (140-440); RBC 4.43 X 10*6/uL (4.10-5.20); RDW 13.2 % (11.5-14.5); WBC 16.67 X 10*3/uL (4.50-10.00)
[2023-01-28 09:17] LABS: Blood Urea Nitrogen 12.3 mg/dL (9.0-27.0); Calcium 9.1 mg/dL (8.7-10.3); Carbon Dioxide 24.9 mmol/L (21.6-31.8); Chloride 100 mmol/L (96-109); Glucose 252 mg/dL (70-110); Potassium 4.5 mmol/L (3.5-5.5); Sodium 135 mmol/L (135-145)
[2023-01-28] MEDS ORDERED: INSULIN DETEMIR (LEVEMIR) 100 UNIT/ML SYR SQ SCH (10:22)
[2023-01-28] MEDS: SENNOSIDES 8.6 MG TAB PO SCH (12:02)
[2023-01-28] MEDS: HYDROmorphone 1 MG/ML 1 ML SYRINGE IVP PRN ×3 (12:05→21:51)
[2023-01-28 12:10] LABS: Glucose,Whole Blood 293 mg/dL (70-110)
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
[2023-01-28] MEDS: methylPREDNISolone SOD SUCCI 125 MG/2 ML VIAL IV SCH ×2 (16:22→23:43)
[2023-01-28 17:17] LABS: Glucose,Whole Blood 371 mg/dL (70-110)
[2023-01-28] MEDS: PANTOPRAZOLE 40 MG TABLET PO SCH (17:42)
[2023-01-28 19:41] LABS: Anti-Smith Ab Interp Negative (Negative); EBV-EA (IgG) 0.7 AI; EBV-EBNA(IgG) 7.5; EBV-VCA (IgM) 1.3 AI; Gliadin AB IgA, Deaminated Negative (Negative); Gliadin AB IgA, Unit 0.7 U/mL; Gliadin AB IgG, Deaminated Negative (Negative); Gliadin AB IgG, Unit <0.4 U/mL
[2023-01-28 20:26] LABS: Glucose,Whole Blood 329 mg/dL (70-110)
[2023-01-28] MEDS: INSULIN DETEMIR (LEVEMIR) 100 UNIT/ML SYR SQ SCH (20:41)
[2023-01-29] MEDS: SODIUM CHLORIDE 0.9% 1,000 ML IV SCH (00:17)
[2023-01-29] MEDS: HYDROmorphone 1 MG/ML 1 ML SYRINGE IVP PRN (00:53)
[2023-01-29] MEDS: KETOROLAC 15 MG/ML 1 ML VIAL IVP PRN (02:50)
[2023-01-29 06:21] LABS: Glucose,Whole Blood 255 mg/dL (70-110)
[2023-01-29] MEDS: PANTOPRAZOLE 40 MG TABLET PO SCH (06:29)
[2023-01-29] MEDS: INSULIN ASPART (NovoLOG) 100 UNIT/ML VIAL SQ SCH ×2 (06:29→07:59)
[2023-01-29] MEDS: HYDROmorphone 0.5 MG/0.5 ML SYRINGE IVP PRN (06:32)
[2023-01-29] MEDS: SENNOSIDES 8.6 MG TAB PO SCH (07:59)
[2023-01-29] MEDS: INSULIN DETEMIR (LEVEMIR) 100 UNIT/ML SYR SQ SCH (07:59)
[2023-01-29] MEDS: methylPREDNISolone SOD SUCCI 125 MG/2 ML VIAL IV SCH (08:00)
[2023-01-29 08:48] VITALS: BP 130/80; PULSE 63; RESP 16; TEMP 98.2
[2023-01-29 09:25] LABS: Blood Urea Nitrogen 16.8 mg/dL (9.0-27.0); Calcium 8.9 mg/dL (8.7-10.3); Chloride 99 mmol/L (96-109); Glucose 266 mg/dL (70-110); Potassium 4.3 mmol/L (3.5-5.5); Sodium 134 mmol/L (135-145)
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
== END 2023-01-29 09:09 | disposition short-term general hospital (02) ==
LOC: EC 10:11 → INTOOBSV 14:10 → OBSVTOIN 14:10 → 6NMEDSUR 14:10 → UNDODISIN 01-29 09:09
PROVIDERS: ADMIT Internal Medicine; ATTEND Internal Medicine
DX: M35.3 Polymyalgia rheumatica (principal); E09.65 Drug or chemical induced diabetes mellitus with hyperglycemia; T38.0X5A Adverse effect of glucocorticoids and synthetic analogues, initial encounter; R70.0 Elevated erythrocyte sedimentation rate; G89.29 Other chronic pain; M54.2 Cervicalgia; R21 Rash and other nonspecific skin eruption; E66.9 Obesity, unspecified; M51.37 Other intervertebral disc degeneration, lumbosacral region; F32.A Depression, unspecified; Z20.822 Contact with and (suspected) exposure to COVID-19; Z79.84 Long term (current) use of oral hypoglycemic drugs; Z79.85 Long-term (current) use of injectable non-insulin antidiabetic drugs
CPT/HCPCS: 96376 ×4; 96361; 96372; 96375 ×3; 96374; 99285; 36415; 97162; 97166; 87651; 86160 ×2; 86235 ×2; 86665 ×2; 80053; 80048 ×2; 85652 ×2; 86663; 84443; 82550; 82553; 85025 ×2; 86140 ×2; 86431; 86664; 86038; 83516 ×4; 83036; 84145; 87635; 72070; 72050; 72100; G0378 ×4; J2270; J2920 ×3; J2930 ×2; J2405; J1170 ×6; J1885 ×3; C9113 ×3; 99284

== ENCOUNTER → 2023-08-04 | Outpatient (CLI) | payer OTHER ==
[2023-08-04 13:34] VITALS: BP 115/80; PULSE 88; RESP 16; TEMP 98.5; BMI 39.9
--- NOTE | 2023-08-04 17:52 | P.HPBAR ---
Bariatric H&P - History & Physicial H&P Date: 08/04/23 History & Physicial: Visit/CC: Initial Visit Patient initial contact: Initial weight: 108.862 kg Initial weight in pounds: 240.00 Height: 5 ft 5 in Initial BMI: 39.9 Last weight: Current weight: 108.862 kg Current weight in pounds: 240.00 Current BMI: 39.9 [place] body weight (based on NIH guidelines): 56.699 kg Excess body weight loss: 0.0% The patient is a 43 year-old F who presents for Bariatric Assessment. Patient seen today to discuss sleeve gastrectomy. Patient has tried a variety of different weight loss methods. Patient with history of type 2 diabetes, psoriatic arthritis, fatty liver. No history of DVT or dysphagia. No tobacco use. Minimal reflux symptoms rarely. Past surgical history includes . Patient is considering gastric bypass but does not like the long-term complication profile she says. Review of Systems The patient denies any acute changes in vision or hearing, no dysphagia or odynophagia, no chest pain or shortness of breath, no dysuria or hematuria, no headache, no runny nose, no rectal bleeding or melena, no unexplained weight loss Past Medical History Past Medical History: Diabetes Mellitus History of Any Multi-Drug Resistant Organisms: None Reported Past Surgical History: Section Past Anesthesia/Blood Transfusion Reactions: No Reported Reaction Past Psychological History: Depression Smoking Status: Former smoker Past Alcohol Use History: Occasional Past Drug Use History: None Reported Surgical - Exam Vital Signs Temp Pulse Resp BP 98.5 F 88 16 115/80 08/04/23 13:06 08/04/23 13:06 08/04/23 13:06 08/04/23 13:06 Physical exam: General: Well-developed, well-nourished HEENT: Normocephalic, sclerae nonicteric Abdomen: Nontender, nondistended Extremities: No edema Neuro: Alert and oriented Bariatric Assessment & Plan (1) Severe obesity (BMI 35.0-39.9) with comorbidity Narrative/Plan: 43-year-old female with severe obesity and comorbidities. Patient is interested in sleeve gastrectomy. Risks, benefits, and average weight loss with sleeve gastrectomy and gastric bypass discussed in detail. Pre and postoperative expectations regarding sleeve gastrectomy discussed. She would like to proceed. Will schedule for upper endoscopy as part of our preoperative workup. Check routine labs although sounds like she had recent blood work performed. Will review those. Status: Acute Bariatric Checklist Checklist: Plan: Checklist: EGD: 1. Hiatal hernia: 2. H. Pylori: HgbA1c: Vitamin D: Smoking: Current every day smoker Primary care physician referral: Dr. Manjarrez Psychiatry clearance: Cardiology clearance: Sleep study: Diet journal: VTE risk score: VTE risk level: Rehab needs at discharge:
== END ==
LOC: BARWHC3 12:43
PROVIDERS: ATTEND Surgery
DX: E66.01 Morbid (severe) obesity due to excess calories (principal); E11.9 Type 2 diabetes mellitus without complications; F32.A Depression, unspecified; F17.200 Nicotine dependence, unspecified, uncomplicated; Z68.39 Body mass index [BMI] 39.0-39.9, adult; Z79.85 Long-term (current) use of injectable non-insulin antidiabetic drugs; Z79.84 Long term (current) use of oral hypoglycemic drugs
CPT/HCPCS: 99212

== ENCOUNTER 2023-09-20 12:45 | Day surgery (SDC) | payer OTHER ==
[2023-09-15 16:19] VITALS: BMI 41.1
[~2023-09-20 12:45] MED LIST: LIDOCAINE 1% (10MG/ML) FOR IV START INTRADERMA PRN
[2023-09-20] MEDS: LACTATED RINGERS 1,000 ML IV SCH (13:25)
--- NOTE | 2023-09-20 13:34 | P.GSHP ---
History of Present Illness H&P Date: 09/20/23 Chief Complaint: GERD 43-year-old female here for upper endoscopy. Patient with mild reflux symptoms. Being evaluated for possible sleeve gastrectomy. Past Medical History Past Medical History: Diabetes Mellitus, Skin Disorder Additional Past Medical History / Comment(s): psoriatric arthritis, fatty liver History of Any Multi-Drug Resistant Organisms: None Reported Past Surgical History: Section Additional Past Surgical History / Comment(s): lympomas Past Anesthesia/Blood Transfusion Reactions: No Reported Reaction Additional Past Anesthesia/Blood Transfusion Reaction / Comment(s): no blood transfusion Smoking Status: Former smoker Medications and Allergies Home Medications Medication Instructions Recorded Confirmed Type Dulaglutide [Trulicity] 1.5 mg SQ WE 01/26/23 09/20/23 History Metformin Er 750mg Tab 750 mg PO DAILY 01/26/23 09/20/23 History Adalimumab [Humira Pen 10 mg SQ DIRECTED 08/11/23 09/20/23 History Crohn's-Uc-Hs] Ergocalciferol [Vitamin D2 (1250 50,000 unit PO WEEKLY 08/11/23 09/20/23 History Mcg = 16450 Iu)] Folic Acid 1 mg PO DAILY 08/11/23 09/20/23 History Allergies Allergy/AdvReac Type Severity Reaction Status Date / Time No Known Allergies Allergy Verified 09/20/23 13:24 Surgical - Exam Vital Signs Temp Pulse Resp BP Pulse Ox 97.6 F 89 16 128/76 99 09/20/23 13:21 09/20/23 13:21 09/20/23 13:21 09/20/23 13:21 09/20/23 13:21 Physical exam: General: Well-developed, well-nourished HEENT: Normocephalic, sclerae nonicteric Abdomen: Nontender, nondistended Extremities: No edema Neuro: Alert and oriented Assessment and Plan (1) GERD (gastroesophageal reflux disease) Narrative/Plan: Will proceed with upper endoscopy. Current Visit: Yes Status: Acute Code(s): K21.9 - GASTRO-ESOPHAGEAL REFLUX DISEASE WITHOUT ESOPHAGITIS SNOMED Code(s): 251925967
[2023-09-20] MEDS ORDERED: LIDOCAINE 1% INJ 10MG/ML (20 ML MDV) ONE (13:35)
[2023-09-20] MEDS ORDERED: PROPOFOL 10 MG/ML 20 ML VIAL IV ONE (13:35)
[2023-09-20 13:38] LABS: Glucose,Whole Blood 102 mg/dL (70-110)
[2023-09-20 13:41] VITALS: RESP 16; TEMP 97.6
--- NOTE | 2023-09-20 13:44 | P.PCN ---
Date of Procedure: 09/20/23 Procedure(s) Performed: Preoperative Dx: GERD, presurgical Postoperative Dx: Mild gastritis Procedure: EGD with Bx Anesthesia: Sedation Endoscopist: Dr. Jolly Specimens: Antrum Endoscopic Procedure: The patient was on the endoscopy table in the left decubitus position. The Olympus gastroscope was inserted into the oropharynx and passed under direct visualization to the region of the third portion of the duodenum. From that point the scope was slowly withdrawn inspecting all surfaces carefully. There were no neoplastic inflammatory or polypoid lesions throughout the duodenum. The pylorus was widely patent. The stomach was carefully inspected. There was mild gastritis in the antral region. A biopsy of the antrum took place to rule out H. pylori. Retroflexion revealed a normal hiatus. The esophagus was then carefully examined. There were no neoplastic inflammatory or polypoid lesions throughout the visualized esophagus. The patient was then taken to the recovery room in stable condition per anesthesia guidelines. Recommendations: Await biopsy results. Follow-up bariatric center.
[2023-09-20 14:17] VITALS: BP 112/66; PULSE 81
== END 2023-09-20 14:34 | disposition home or self-care (01) ==
LOC: ORWHC2ENDO 12:45
PROVIDERS: ATTEND Surgery
DX: K29.50 Unspecified chronic gastritis without bleeding (principal); K21.9 Gastro-esophageal reflux disease without esophagitis; E11.9 Type 2 diabetes mellitus without complications; F32.A Depression, unspecified; L40.50 Arthropathic psoriasis, unspecified; Z87.891 Personal history of nicotine dependence; Z79.84 Long term (current) use of oral hypoglycemic drugs; Z79.899 Other long term (current) drug therapy; Z79.85 Long-term (current) use of injectable non-insulin antidiabetic drugs
CPT/HCPCS: 81025; 88305; 43239; J2001; J2704

== ENCOUNTER → 2023-09-29 | Outpatient (CLI) | payer OTHER ==
--- NOTE | 2023-09-29 13:15 | MM ---
Reason for Exam: Screening (asymptomatic). Baseline mammogram. Patient History: Menarche at age 13. First Full-Term at age 21. Patient has history of breast feeding. Risk Values: Mirlande 5 year model risk: 0.5%. NCI Lifetime model risk: 8.0%. Prior Study Comparison: Patient's first Mammogram. Tissue Density: The breasts are heterogeneously dense, which may obscure small masses. Findings: Analyzed By CAD. Asymmetric density left 12:00 position between 5 and 6 cm from the nipple. Additional views are recommended. No mass or distortion right breast. No suspicious calcifications present. Overall Assessment: Incomplete: need additional imaging evaluation, BI-RAD 0 Management: Diagnostic Mammogram of the left breast. . Patient should continue monthly self-breast exams. A clinical breast exam by your physician is recommended on an annual basis. This exam should not preclude additional follow-up of suspicious palpable abnormalities. Note on Mirlande scores and lifetime risk: 1. A Mirlande score greater than 3% is considered moderate risk. If this is the case, consider specialist referral to assess eligibility for a risk reducing agent. 2. If overall lifetime risk for the development of breast cancer is 20% or higher, the patient may qualify for future screening with alternating mammogram and breast MRI. Electronically signed and approved by: Michel Godinez M.D. Radiologis
== END | disposition home or self-care (01) ==
LOC: RADMAMWWP 09:01
PROVIDERS: ATTEND Family Medicine
DX: Z12.31 Encounter for screening mammogram for malignant neoplasm of breast (principal)
CPT/HCPCS: 77067

== ENCOUNTER → 2023-10-05 | Outpatient (CLI) | payer OTHER ==
--- NOTE | 2023-10-05 09:18 | MM ---
Reason for Exam: Additional evaluation requested from abnormal screening. Last screening mammogram was performed less than 1 month ago. Patient History: Menarche at age 13. First Full-Term at age 21. Patient has history of breast feeding. Last menstrual period: 08/26/2023 Risk Values: Mirlande 5 year model risk: 0.5%. NCI Lifetime model risk: 8.0%. Prior Study Comparison: 09/29/2023 Bilateral MG screening mammo w CAD, [facility]. Tissue Density: Left: The breasts are heterogeneously dense, which may obscure small masses. Findings: Analyzed By CAD. 3 nodular densities are seen left 12:00 to 11:00 position. Nodular densities are approximately 5 cm from the nipple and range in size from 5 mm intervals. There are also probably benign punctate calcifications although continued follow-up advised. Overall Assessment: Incomplete: need additional imaging evaluation, BI-RAD 0 Management: Diagnostic Breast Ultrasound of the left breast. . Results were given to the patient verbally at the time of exam. Patient should continue monthly self-breast exams. A clinical breast exam by your physician is recommended on an annual basis. This exam should not preclude additional follow-up of suspicious palpable abnormalities. Note on Mirlande scores and lifetime risk: 1. A Mirlande score greater than 3% is considered moderate risk. If this is the case, consider specialist referral to assess eligibility for a risk reducing agent. 2. If overall lifetime risk for the development of breast cancer is 20% or higher, the patient may qualify for future screening with alternating mammogram and breast MRI. Electronically signed and approved by: Michel Godinez M.D. Radiologis
--- NOTE | 2023-10-06 14:44 | USB ---
Reason for Exam: Additional evaluation requested from prior study. Patient History: Menarche at age 13. First Full-Term at age 21. Patient has history of breast feeding. Risk Values: Mirlande 5 year model risk: 0.5%. NCI Lifetime model risk: 8.0%. Technique: Method: Targeted. Prior Study Comparison: 09/29/2023 Bilateral MG screening mammo w CAD, [facility]. Findings: The upper section of the breast of the left breast, the axilla of the left breast and the retroareolar of the left breast were scanned. Tiny too small to characterize 5 x 3 mm lesion left o'clock position 5 cm from the nipple likely reflects a small lymph node. Overall Assessment: Probably benign, BI-RAD 3 Management: Diagnostic Breast Ultrasound of the left breast in 6 months. A clinical breast exam by your physician is recommended on an annual basis and results should be correlated with mammographic findings. This exam should not preclude additional follow-up of suspicious palpable abnormalities. Results were given to the patient verbally at the time of exam. Electronically signed and approved by: Michel Godinez M.D. Radiologis
== END | disposition home or self-care (01) ==
LOC: RADMAMWWP 08:04
PROVIDERS: ATTEND Family Medicine
DX: R92.332 Mammographic heterogeneous density, left breast (principal)
CPT/HCPCS: 77065; 76642; G0279; 77061

== ENCOUNTER → 2023-10-18 | Outpatient (CLI) | payer OTHER ==
[2023-10-18 14:15] VITALS: BP 139/81; PULSE 94; RESP 16; TEMP 97.9; BMI 40.4
--- NOTE | 2023-10-18 16:24 | P.BASOAP ---
Subjective Progress Note Date: 10/18/23 Principal diagnosis: Morbid obesity Patient returns for reevaluation. Underwent recent preoperative EGD showing mild gastritis. No H. pylori seen. No changes to her previous history and physical other than changing from Humira to Orencia for her psoriatic arthritis. Doing better since that was started. Objective - Vital Signs Vital signs: Vital Signs Temp 97.9 F 10/18/23 13:52 Pulse 94 10/18/23 13:52 Resp 16 10/18/23 13:52 BP 139/81 10/18/23 13:52 Pulse Ox FiO2 Intake & Output 10/17/23 10/18/23 10/18/23 18:59 06:59 18:59 Weight 110.223 kg - Exam Abdomen: Soft, nontender, nondistended Assessment/Plan (1) Severe obesity (BMI 35.0-39.9) with comorbidity Narrative/Plan: 43-year-old female with morbid obesity. BMI today 40.4. Patient remains interested in sleeve gastrectomy. Recent EGD reviewed. Surgical consent form and associated risks were reviewed in detail. All questions answered. Will schedule for laparoscopic da Domo assisted sleeve gastrectomy, possible open. The risks of bleeding, infection, stenosis, stricture, leak, abscess, fistula formation, peritonitis, poor weight loss, reflux, vomiting, conversion to an open procedure, aborting sleeve gastrectomy, [place], PE, DVT, and were discussed. The patient understands and wishes to proceed. Patient will stop her Orencia 2 weeks prior to surgery. Plan: Date: 10/18/23 Initial Weight: 108.862 kg Initial BMI: 39.9 Current Weight: 110.223 kg Current BMI: 40.4 Type of Surgery: Total Volume in Band: Previous Volume: Volume Removed: Volume Added: Band Size:
== END ==
LOC: BARWHC3 13:23
PROVIDERS: ATTEND Surgery
DX: E66.01 Morbid (severe) obesity due to excess calories (principal); F17.200 Nicotine dependence, unspecified, uncomplicated; Z68.41 Body mass index [BMI] 40.0-44.9, adult; Z90.3 Acquired absence of stomach [part of]; Z86.718 Personal history of other venous thrombosis and embolism
CPT/HCPCS: 99211

== ENCOUNTER → 2023-10-24 | Outpatient (CLI) | payer OTHER ==
[2023-10-24 16:01] VITALS: BMI 40.2
== END ==
LOC: BARWHC3 12:59
PROVIDERS: ATTEND Surgery
DX: E66.01 Morbid (severe) obesity due to excess calories (principal); F17.200 Nicotine dependence, unspecified, uncomplicated; Z71.3 Dietary counseling and surveillance; Z68.41 Body mass index [BMI] 40.0-44.9, adult
CPT/HCPCS: 97804

== ENCOUNTER 2023-12-12 07:30 | Inpatient (IN) | payer OTHER ==
[2023-12-16] MEDS ORDERED: MIDAZOLAM 2 MG/2 ML VIAL IV PRN (07:00)
[2023-12-16] MEDS ORDERED: HYDROmorphone 0.5 MG/0.5 ML SYRINGE IVP PRN ×2 (07:00→15:29)
[2023-12-16] MEDS: IV FLUID CONTINUATION 1,000 ML IV ONE ×2 (11:54→14:59)
[2023-12-16 12:31] LABS: Glucose,Whole Blood 98 mg/dL (70-110)
[2023-12-16] MEDS: ACETAMINOPHEN TAB 500 MG TAB PO PRN (12:38)
[2023-12-16] MEDS: ENOXAPARIN 40 MG/0.4 ML SYRINGE SQ PRN (12:38)
[2023-12-16] MEDS: ONDANSETRON 4 MG/2 ML VIAL IVP PRN ×2 (12:39→21:48)
[2023-12-16] MEDS: DEXAMETHASONE SOD PHOSPHATE 4 MG/ML 1 ML VIAL IVP STA (12:39)
[2023-12-16] MEDS: FAMOTIDINE 20 MG/2 ML VIAL IV STA (12:40)
[2023-12-16] MEDS: LACTATED RINGERS 1,000 ML IV SCH (12:40)
--- NOTE | 2023-12-16 12:47 | P.GSHP ---
History of Present Illness H&P Date: 12/16/23 Chief Complaint: Morbid obesity 43-year-old female here today for elective laparoscopic sleeve gastrectomy. Patient initially seen in the office in July. Patient with history of type 2 diabetes psoriatic arthritis fatty liver and mild reflux. Underwent EGD preoperatively showing mild gastritis. Doing well at this time. Current BMI 40.2. Past Medical History Past Medical History: Diabetes Mellitus, Liver Disease, Skin Disorder Additional Past Medical History / Comment(s): psoriatric arthritis, fatty liver History of Any Multi-Drug Resistant Organisms: None Reported Past Surgical History: Section Additional Past Surgical History / Comment(s): lympomas wisdom teeth extraction Past Anesthesia/Blood Transfusion Reactions: No Reported Reaction Additional Past Anesthesia/Blood Transfusion Reaction / Comment(s): no blood transfusion Smoking Status: Former smoker - Past Family History Father Family Medical History: No Reported History Medications and Allergies Home Medications Medication Instructions Recorded Confirmed Type Dulaglutide [Trulicity] 1.5 mg SQ WE 01/26/23 12/16/23 History Metformin Er 750mg Tab 750 mg PO DAILY 01/26/23 12/16/23 History Abatacept [Orencia] 1 dose INJ DIRECTED 12/13/23 12/16/23 History Allergies Allergy/AdvReac Type Severity Reaction Status Date / Time No Known Allergies Allergy Verified 12/16/23 12:03 Surgical - Exam Vital Signs Temp Pulse Resp BP Pulse Ox 97.8 F 82 16 114/58 98 12/16/23 12:06 12/16/23 12:06 12/16/23 12:06 12/16/23 12:06 12/16/23 12:06 Physical exam: General: Well-developed, well-nourished HEENT: Normocephalic, sclerae nonicteric Abdomen: Nontender, nondistended Extremities: No edema Neuro: Alert and oriented Assessment and Plan (1) Morbid obesity with BMI of 40.0-44.9, adult Narrative/Plan: 43-year-old female with morbid obesity. Will proceed with laparoscopic da Domo assisted sleeve gastrectomy, possible open. The risks of bleeding, infection, stenosis, stricture, leak, abscess, fistula formation, peritonitis, poor weight loss, reflux, vomiting, conversion to an open procedure, aborting sleeve gastrectomy, [place], PE, DVT, and were discussed. The patient understands and wishes to proceed. Current Visit: Yes Status: Acute Code(s): E66.01 - MORBID (SEVERE) OBESITY DUE TO EXCESS CALORIES; Z68.41 - BODY MASS INDEX [BMI] 40.0-44.9, ADULT SNOMED Code(s): 114059150
[2023-12-16] MEDS ORDERED: ROCURONIUM 10 MG/ML (5 ML VIAL) IV ONE (13:20)
[2023-12-16] MEDS ORDERED: fentaNYL (PF) 50 MCG/ML 2 ML AMP ONE (13:20)
[2023-12-16] MEDS ORDERED: NEOSTIGMINE 1 MG/ML 10 ML VIAL ONE (13:20)
[2023-12-16] MEDS ORDERED: GLYCOPYRROLATE 0.2 MG/ML 2 ML VIAL ONE (13:20)
[2023-12-16] MEDS ORDERED: PROPOFOL 10 MG/ML 20 ML VIAL IV ONE (13:20)
[2023-12-16] MEDS ORDERED: LIDOCAINE 1% INJ 10MG/ML (20 ML MDV) ONE (13:20)
[2023-12-16] MEDS ORDERED: MIDAZOLAM 2 MG/2 ML VIAL ONE (13:20)
[2023-12-16] MEDS ORDERED: SUCCINYLCHOLINE CHLORIDE 200 MG/10 ML VIAL IV ONE (13:20)
[2023-12-16] MEDS ORDERED: HYDROmorphone (PF) 1 MG/ML ONE (13:20)
[2023-12-16] MEDS: BUPIVACAINE (PF) 0.25% 30 ML VIAL SQ ONE (13:43)
[2023-12-16] MEDS: DEXTROSE 5% MISCELLANE ONE (14:08)
[2023-12-16] MEDS: METHYLENE BLUE MISCELLANE ONE (14:08)
[2023-12-16] MEDS: WATER MISCELLANE ONE (14:08)
[2023-12-16 15:29] LABS: Glucose,Whole Blood 139 mg/dL (70-110)
[2023-12-16] MEDS ORDERED: NALOXONE 0.4 MG/ML 1 ML VIAL IV PRN (15:29)
[2023-12-16] MEDS ORDERED: diphenhydrAMINE 50 MG/ML 1 ML VIAL IVP PRN (15:29)
[2023-12-16] MEDS ORDERED: HYDROmorphone 1 MG/ML 1 ML SYRINGE IVP PRN (15:29)
--- NOTE | 2023-12-16 15:39 | P.OP ---
Date of Procedure: 12/16/23 Procedure(s) Performed: PREOPERATIVE DIAGNOSIS: Morbid obesity, diabetes POSTOPERATIVE DIAGNOSIS: Same PROCEDURE: Da Domo assisted laparoscopic sleeve gastrectomy SURGEON: Shanae EBL: Minimal ANESTHESIA: General COMPLICATIONS: None OPERATIVE PROCEDURE: Patient was placed in the operating table in the supine position. The patient was then placed under general anesthesia at that time. The abdomen was prepped and draped in the usual sterile fashion. A 5 mm optical trocar was placed in the left upper quadrant 20 cm inferior to the xiphoid process. Insufflation took place up to 15 mmHg. No adhesions were seen. A 5 mm subxiphoid incision was made and the medium Roman retractor was used to elevate the left lobe of liver anteriorly. This was held in place using the fixed arm retractor. An additional 12 mm trocar was placed in the right paramedian location and 2 additional 8 mm trochars were placed in the left upper quadrant one medial and one lateral to the initially placed optical trocar. All of these trochars were placed along the same plane. The initial 5 was then switched to an 8 mm trocar. The robot was then docked appropriately. The 8 mm camera was placed in the left paramedian trocar site down viewing. A fenestrated bipolar was placed in arm 1, arm 3 had the vessel sealer, arm 4 had the small grasper retractor. The hiatus was inspected and there was no visible hiatal hernia. At that point I moved to the distal aspect of the greater curvature the stomach. The short gastric vasculature were divided using the vessel sealer. This dissection took place distally until we were 4 cm from the pylorus. The posterior adhesions were divided as well. The dissection then took place proximally along the stomach until the posterior short gastrics were divided and the fundus of the stomach was fully mobilized. Once the stomach was fully mobilized the blunt tipped 40-Kazakh bougie dilator was advanced into the stomach and advanced all the way to the prepyloric location. The patient's stomach by palpation seemed to be of average thickness. The first firing of the stapler was green load, second 2 loads were blue, last 2 loads were blue with Denio seam guard. The staple line had an area of oozing at 2 separate spots after pressure was brought down to 10 mm. 1 was distally and 1 was in the mid sleeve. This was not fully controlled with bipolar cautery and clips were deployed at those locations without further bleeding noted. The stomach was then placed in the right upper quadrant after it was fully excised. The oral gastric tube was reinserted. The stomach was insufflated with approximately 100 mL of methylene blue. No evidence of leak or obstruction was seen. Tisseel fibrin glue was then used along the length of the staple line. The robot was then undocked. The da Domo laparoscope was used and the stomach was removed from the 12 mm trocar site without difficulty. The fascia at the 12mm site was closed using [id number] 0 Vicryl sutures with the laparoscopic suture passer and Jose Anette technique. The insufflation was evacuated. The skin at all 5 incisions were closed using 4-0 Monocryl sutures. Skin glue was then applied. DISPOSITION: Stable to recovery room
[2023-12-16] MEDS: ALBUTEROL NEBULIZED 2.5 MG/3 ML INHALATION SCH (16:35)
[2023-12-16] MEDS: ACETAMINOPHEN IV (For NPO) 1,000 MG in EMPTY BAG 1 BAG IVPB SCH (17:51)
[2023-12-16] MEDS: 0.9% NACL WITH KCL 20 MEQ/L 1,000 ML IV SCH (18:12)
[2023-12-17] MEDS: DEXAMETHASONE SOD PHOSPHATE 4 MG/ML 1 ML VIAL IVP SCH (01:31)
[2023-12-17] MEDS: METOCLOPRAMIDE 5 MG/ML 2 ML VIAL IVP PRN (01:32)
[2023-12-17] MEDS: ENOXAPARIN 40 MG/0.4 ML SYRINGE SQ SCH (05:51)
[2023-12-17] MEDS: SIMETHICONE 80 MG CHEWABLE PO PRN (08:20)
[2023-12-17] MEDS: PANTOPRAZOLE 40 MG/10 ML VIAL IV SCH (08:20)
[2023-12-17 09:40] LABS: Blood Urea Nitrogen 7.1 mg/dL (9.0-27.0); Chloride 107 mmol/L (96-109); Magnesium 1.8 mg/dL (1.5-2.4); Potassium 4.4 mmol/L (3.5-5.5); Sodium 135 mmol/L (135-145)
[2023-12-17] MEDS: HYOSCYAMINE ORAL DROPS 1.875 MG/15 ML BOTTLE PO PRN (09:40)
[2023-12-17 09:41] LABS: Calcium 7.9 mg/dL (8.7-10.3); Carbon Dioxide 15.9 mmol/L (21.6-31.8); Phosphorus 2.5 mg/dL (2.4-5.1)
[2023-12-17] MEDS: 0.9% NACL WITH KCL 20 MEQ/L 1,000 ML IV SCH (09:42)
[2023-12-17 09:43] LABS: Basophils # (A) 0.01 X 10*3/uL (0.00-0.10); Basophils % (A) 0.1 %; Eosinophils # (A) 0 X 10*3/uL (0.04-0.35); Eosinophils % (A) 0 %; HCT 39.3 % (37.2-46.3); HGB 13.1 g/dL (12.0-15.0); Lymphocytes # (A) 1.18 X 10*3/uL (0.90-5.00); Lymphocytes % (A) 10.3 %; MCH 27.9 pg (27.0-32.0); MCHC 33.3 g/dL (32.0-37.0); MCV 83.8 FL (80.0-97.0); Mean Platelet Volume 12.4 FL (9.5-12.2); Monocytes # (A) 0.18 X 10*3/uL (0.20-1.00); Monocytes % (A) 1.6 %; NRBC Per 100 WBC 0 X 10*3/uL (0.00-0.01); Neutrophils # (A) 10.02 X 10*3/uL (1.80-7.70); Neutrophils % (A) 87.7 %; Platelet Count 232 X 10*3/uL (140-440); RBC 4.69 X 10*6/uL (4.10-5.20); RDW 13.3 % (11.5-14.5); WBC 11.43 X 10*3/uL (4.50-10.00)
--- NOTE | 2023-12-17 10:41 | P.PN ---
Progress Note - Text Progress Note Date: 12/17/23 CHIEF COMPLAINT: Sleeve Gastrectomy HISTORY OF PRESENT ILLNESS: NAEO. Pain is controlled. Some Nausea PHYSICAL EXAM: VITAL SIGNS: Reviewed GENERAL: Well-developed in no acute distress. HEENT: No sclera icterus. Extraocular movements grossly intact. Moist buccal mucosa. Head is atraumatic, normocephalic. Hears conversational speech. No nasal drainage. NECK: Supple without lymphadenopathy. CHEST: Non-labored respirations and equal bilateral excursions. CARDIOVASCULAR: Palpable 2+ radial pulses. ABDOMEN: Soft. Nondistended. Tender right lower quadrant and lower mid abdomen. No signs of peritonitis. Incisions C/D/I MUSCULOSKELETAL: No clubbing or cyanosis. NEUROLOGIC: No focal or lateralizing signs. Cranial nerves II through XII grossly intact. PSYCH: Appropriate affect. Alert and oriented to person, place and time. SKIN: Well perfused. Good skin turgor. ASSESSMENT: 1. POD #1 Lap Sleeve Gastrectomy PLAN: -UGI -Sips -Pain and Nausea Control -OOB, ambulate
[2023-12-17] MEDS ORDERED: DEXTROSE 50% SYRINGE 50 ML IVP PRN ×2 (10:47)
[2023-12-17 11:43] LABS: Glucose,Whole Blood 162 mg/dL (70-110)
[2023-12-17] MEDS: INSULIN ASPART (NovoLOG) 100 UNIT/ML VIAL SQ SCH (12:01)
--- NOTE | 2023-12-17 12:36 | P.CONS ---
History of Present Illness - Reason for Consult Consult date: 12/17/23 Medical management - History of Present Illness History of present illness; patient is a 43-year-old lady with past medical history significant for morbid obesity, diabetes mellitus who came to the hospital for elective laparoscopic sleeve gastrectomy. Patient was being followed up outpatient by general surgery, had a EGD done that showed mild gastritis. Patient was scheduled for sleeve gastrectomy which she underwent on 12/15. Postoperatively internal medicine team were consulted REVIEW OF SYSTEMS: CONSTITUTIONAL: No fever, no malaise, no fatigue. HEENT: No recent visual problems or hearing problems. Denied any sore throat. CARDIOVASCULAR: No chest pain, orthopnea, PND, no palpitations, no syncope. PULMONARY: No shortness of breath, no cough, no hemoptysis. GASTROINTESTINAL: No diarrhea, no nausea, no vomiting, complaining of abdominal pain NEUROLOGICAL: No headaches, no weakness, no numbness. HEMATOLOGICAL: Denies any bleeding or petechiae. GENITOURINARY: Denies any burning micturition, frequency, or urgency. MUSCULOSKELETAL/RHEUMATOLOGICAL: Denies any joint pain, swelling, or any muscle pain. ENDOCRINE: Denies any polyuria or polydipsia. The rest of the 14-point review of systems is negative. PHYSICAL EXAMINATION: GENERAL: The patient is alert and oriented x3, not in any acute distress. Well developed, well nourished. HEENT: Pupils are round and equally reacting to light. EOMI. No scleral icterus. No conjunctival pallor. Normocephalic, atraumatic. No pharyngeal erythema. No t hyromegaly. CARDIOVASCULAR: S1 and S2 present. No murmurs, rubs, or gallops. PULMONARY: Chest is clear to auscultation, no wheezing or crackles. ABDOMEN: Soft, nontender, nondistended, normoactive bowel sounds. No palpable organomegaly. Laparoscopic surgical incisions seen MUSCULOSKELETAL: No joint swelling or deformity. EXTREMITIES: No cyanosis, clubbing, or pedal edema. NEUROLOGICAL: Gross neurological examination did not reveal any focal deficits. SKIN: No rashes. Assessment and plan S/p laparoscopic sleeve gastrectomy Morbid obesity Diabetes mellitus Monitor vital signs Monitor CBC Monitor CMP Monitor blood sugar levels, start sliding scale insulin Continue pain management per general surgery Continue antiemetics Continue IV fluids Advance diet per surgery Continue IV Protonix Continue Lovenox for DVT prophylaxis Labs and medication were reviewed.. Continue same treatment. Continue with symptomatic treatment. Resume home medication. Monitor labs and vitals. DVT and GI prophylaxis. Further recommendations as per clinical course of the patient Dictation was produced using [employer] dictation software. please excuse any grammatical, word or spelling errors. Past Medical History Past Medical History: Diabetes Mellitus, Liver Disease, Skin Disorder Additional Past Medical History / Comment(s): psoriatric arthritis, fatty liver History of Any Multi-Drug Resistant Organisms: None Reported Past Surgical History: Section Additional Past Surgical History / Comment(s): lympomas wisdom teeth extraction, gastric sleeve 12/16/23 Past Anesthesia/Blood Transfusion Reactions: No Reported Reaction Additional Past Anesthesia/Blood Transfusion Reaction / Comm: no blood trans fusion Past Psychological History: No Psychological Hx Reported Smoking Status: Former smoker Past Alcohol Use History: Occasional Additional Past Alcohol Use History / Comment(s): quit smoking 2013 Past Drug Use History: None Reported - Past Family History Father Family Medical History: No Reported History Medications and Allergies Home Medications Medication Instructions Recorded Confirmed Type Dulaglutide [Trulicity] 1.5 mg SQ WE 01/26/23 12/16/23 History Metformin Er 750mg Tab 750 mg PO DAILY 01/26/23 12/16/23 History Abatacept [Orencia] 1 dose INJ DIRECTED 12/13/23 12/16/23 History Omeprazole [PriLOSEC] 20 mg PO AC-BRKFST #90 cap 12/16/23 Rx Ondansetron Odt [Zofran Odt] 4 mg PO Q8HR PRN #9 tab 12/16/23 Rx Simethicone 40 mg/0.6 ml Drops 40 mg PO PCHS PRN #30 ml 12/16/23 Rx [Mylicon Drops] bisacodyL [Dulcolax] 5 mg PO DAILY PRN #10 tab 12/16/23 Rx traMADol HCl [Ultram] 50 mg PO Q6H PRN #10 tab 12/16/23 Rx Allergies Allergy/AdvReac Type Severity Reaction Status Date / Time No Known Allergies Allergy Verified 12/16/23 17:01 Physical Exam Vitals: Vital Signs Temp Pulse Pulse Resp BP Pulse Ox 12/17/23 11:59 88 12/17/23 11:52 92 12/17/23 08:52 91 12/17/23 08:44 86 12/17/23 08:14 77 18 12/17/23 06:54 98.0 F 77 18 113/77 98 12/17/23 02:40 98.5 F 80 18 109/64 98 12/16/23 19:38 61 107/70 98 12/16/23 19:23 67 111/74 98 12/16/23 19:08 65 108/72 99 12/16/23 18:53 66 111/74 99 12/16/23 18:38 74 115/75 99 12/16/23 18:23 60 113/74 99 12/16/23 18:08 63 104/65 99 12/16/23 17:53 63 114/77 99 12/16/23 17:38 69 115/78 99 12/16/23 17:23 98.7 F 70 16 110/68 99 12/16/23 16:34 73 16 116/62 99 12/16/23 16:19 70 16 126/65 100 12/16/23 16:04 69 16 111/68 100 12/16/23 15:49 68 16 120/65 100 12/16/23 15:34 74 16 100/54 100 12/16/23 15:19 97.8 F 84 16 120/59 100 Intake and Output 12/16/23 12/17/23 12/17/23 22:59 06:59 14:59 Intake Total 100 Output Total 20 Balance 80 Intake: IV 100 Output: Estimated Blood Loss 20 Other: Voiding Method Toilet # Voids 2 Weight 106.2 kg Results CBC & Chem 7: 12/17/23 06:23 12/17/23 06:19 Labs: Abnormal Lab Results - Last 24 Hours (Table) 12/16/23 12/17/23 12/17/23 Range/Units 15:27 06:19 06:23 WBC 11.43 H (4.50-10.00) X 10*3/uL MPV 12.4 H (9.5-12.2) FL Neutrophils # 10.02 H (1.80-7.70) X 10*3/uL Monocytes # 0.18 L (0.20-1.00) X 10*3/uL Eosinophils # 0 L (0.04-0.35) X 10*3/uL Carbon Dioxide 15.9 L (21.6-31.8) mmol/L Anion Gap 12.10 H (4.00-12.00) mmol/L BUN 7.1 L (9.0-27.0) mg/dL Creatinine 0.5 L (0.6-1.5) mg/dL POC Glucose (mg/dL) 139 H (70-110) mg/dL Calcium 7.9 L (8.7-10.3) mg/dL 12/17/23 Range/Units 11:42 WBC (4.50-10.00) X 10*3/uL MPV (9.5-12.2) FL Neutrophils # (1.80-7.70) X 10*3/uL Monocytes # (0.20-1.00) X 10*3/uL Eosinophils # (0.04-0.35) X 10*3/uL Carbon Dioxide (21.6-31.8) mmol/L Anion Gap (4.00-12.00) mmol/L BUN (9.0-27.0) mg/dL Creatinine (0.6-1.5) mg/dL POC Glucose (mg/dL) 162 H (70-110) mg/dL Calcium (8.7-10.3) mg/dL
--- NOTE | 2023-12-17 15:29 | FL ---
EXAMINATION TYPE: FL UGI DATE OF EXAM: 12/17/2023 LIMITED UGI: CLINICAL HISTORY: Morbid Obesity, lap band placed earlier today. TECHNIQUE: Limited esophagram is performed utilizing real to oz of Omnipaque 350. A total of 39 sec onds of fluoroscopic time was utilized during procedure. COMPARISON: None. FINDINGS: The patient swallowed contrast without difficulty or delay. Esophageal peristalsis and mo tility are within normal limits. There is good flow of contrast along the diaphragmatic hiatus into proximal stomach and subsequent flow into gastric sleeve. There is good flow from distal sleeve into pylorus and duodenal sweep. Patient remains asymptomatic. There is no evidence of contrast extravasat ion to suggest leak. IMPRESSION: No evidence of leak or significant obstruction status post recent gastric sleeve surgery.
[2023-12-17 16:52] LABS: Glucose,Whole Blood 175 mg/dL (70-110)
[2023-12-17 20:31] LABS: Glucose,Whole Blood 159 mg/dL (70-110)
[2023-12-18 06:19] LABS: Glucose,Whole Blood 180 mg/dL (70-110)
[2023-12-18] MEDS ORDERED: bisacodyL 5 MG TABLET.DR PO PRN (08:00)
[2023-12-18 08:47] VITALS: BP 117/72; PULSE 66; RESP 16; TEMP 98.3
--- NOTE | 2023-12-18 10:34 | P.DS ---
Providers Date of admission: 12/16/23 11:28 Expected date of discharge: 12/18/23 Attending physician: Miguel Jolly Consults: 12/16/23 15:29 Consult Physician Routine Consulting Provider: Beck Salas Consult Reason/Comments: Medical management Do you want consulting provider notified?: Yes Primary care physician: Stated None - Discharge Diagnosis(es) (1) Morbid obesity with BMI of 40.0-44.9, adult Patient doing well today after sleeve gastrectomy on Tuesday. Tolerating liquids. Mild soreness at the extraction site. No fevers. Upper GI shows no leak or obstruction. She would like to go home. Will plan discharge. Follow- up at the bariatric center on Tuesday. Current Visit: Yes Status: Acute Plan - Discharge Summary Discharge Rx Participant: No New Discharge Prescriptions: New bisacodyL [Dulcolax] 5 mg PO DAILY PRN #10 tab PRN Reason: Constipation Simethicone 40 mg/0.6 ml Drops [Mylicon Drops] 40 mg PO PCHS PRN #30 ml PRN Reason: Gas traMADol HCl [Ultram] 50 mg PO Q6H PRN #10 tab PRN Reason: Pain Omeprazole [PriLOSEC] 20 mg PO AC-BRKFST #90 cap Ondansetron Odt [Zofran Odt] 4 mg PO Q8HR PRN #9 tab PRN Reason: Nausea No Action Metformin Er 750mg Tab 750 mg PO DAILY Dulaglutide [Trulicity] 1.5 mg SQ WE Abatacept [Orencia] 1 dose INJ DIRECTED Discharge Medication List Dulaglutide [Trulicity] 1.5 mg SQ WE 01/26/23 [History] Metformin Er 750mg Tab 750 mg PO DAILY 01/26/23 [History] Abatacept [Orencia] 1 dose INJ DIRECTED 12/13/23 [History] Omeprazole [PriLOSEC] 20 mg PO AC-BRKFST #90 cap 12/16/23 [Rx] Ondansetron Odt [Zofran Odt] 4 mg PO Q8HR PRN #9 tab 12/16/23 [Rx] Simethicone 40 mg/0.6 ml Drops [Mylicon Drops] 40 mg PO PCHS PRN #30 ml 12/16/23 [Rx] bisacodyL [Dulcolax] 5 mg PO DAILY PRN #10 tab 12/16/23 [Rx] traMADol HCl [Ultram] 50 mg PO Q6H PRN #10 tab 12/16/23 [Rx] Follow up Appointment(s)/Referral(s): [facility] [NON-STAFF] - 12/20/23
--- NOTE | 2023-12-18 12:55 | P.PN ---
Subjective Progress Note Date: 12/18/23 patient is a 43-year-old lady with past medical history significant for morbid obesity, diabetes mellitus who came to the hospital for elective laparoscopic sleeve gastrectomy. Patient was being followed up outpatient by general surgery, had a EGD done that showed mild gastritis. Patient was scheduled for sleeve gastrectomy which she underwent on 12/15. Postoperatively internal medicine team were consulted 12/17. Patient seen and examined. Currently doing better. Surgery planning to discharge the patient today. Patient medically stable for discharge REVIEW OF SYSTEMS: CONSTITUTIONAL: No fever, no malaise,. CARDIOVASCULAR: No chest pain, no palpitations, no syncope. PULMONARY: No shortness of breath, no cough, GASTROINTESTINAL: No diarrhea, no nausea, no vomiting, no abdominal pain. NEUROLOGICAL: No headaches, no weakness, PHYSICAL EXAMINATION: GENERAL: The patient is alert and oriented x3, not in any acute distress. Well developed, well nourished. HEENT: Pupils are round and equally reacting to light. EOMI. No scleral icterus. No conjunctival pallor. Normocephalic, atraumatic. No pharyngeal erythema. No thyromegaly. CARDIOVASCULAR: S1 and S2 present. No murmurs, rubs, or gallops. PULMONARY: Chest is clear to auscultation, no wheezing or crackles. ABDOMEN: Soft, nontender, nondistended, normoactive bowel sounds. No palpable organomegaly. Laparoscopic surgical incision seen MUSCULOSKELETAL: No joint swelling or deformity. EXTREMITIES: No cyanosis, clubbing, or pedal edema. NEUROLOGICAL: Gross neurological examination did not reveal any focal deficits. SKIN: No rashes. Assessment and plan Assessment and plan S/p laparoscopic sleeve gastrectomy Morbid obesity Diabetes mellitus Monitor vital signs Continue pain management per general surgery Continue antiemetics Continue IV fluids Advance diet per surgery Labs and medication were reviewed.. Continue same treatment. Continue with symptomatic treatment. Resume home medication. Monitor labs and vitals. DVT and GI prophylaxis. Further recommendations as per clinical course of the patient Dictation was produced using [employer] dictation software. please excuse any grammatical, word or spelling errors. Objective - Vital Signs Vital signs: Vital Signs Temp 98.3 F 12/18/23 06:47 Pulse 66 12/18/23 08:58 Resp 16 12/18/23 08:58 BP 117/72 12/18/23 06:47 Pulse Ox 96 12/18/23 06:47 FiO2 Intake & Output 12/17/23 12/18/23 12/18/23 18:59 06:59 18:59 Other: Voiding Method Toilet Toilet # Voids 4 3 - Labs CBC & Chem 7: 12/17/23 06:23 12/17/23 06:19 Labs: Abnormal Lab Results - Last 24 Hours (Table) 12/17/23 12/17/23 12/18/23 Range/Units 16:51 20:29 06:17 POC Glucose (mg/dL) 175 H 159 H 180 H (70-110) mg/dL
== END 2023-12-18 14:14 | disposition home or self-care (01) | DRG 403 ==
LOC: 2ORMAIN 12-16 11:28 → 4SSUR 12-16 16:29
PROVIDERS: ADMIT Surgery; ATTEND Surgery
PROC: 8E0W4CZ Robotic Assisted Procedure of Trunk Region, Percutaneous Endoscopic Approach (ICD-10-PCS; principal; 2023-12-16 12:50)
PROC: 0DB64Z3 Excision of Stomach, Percutaneous Endoscopic Approach, Vertical (ICD-10-PCS; principal; 2023-12-16 12:50)
DX: E66.01 Morbid (severe) obesity due to excess calories (principal); Z68.41 Body mass index [BMI] 40.0-44.9, adult; L40.50 Arthropathic psoriasis, unspecified; E11.9 Type 2 diabetes mellitus without complications; K76.0 Fatty (change of) liver, not elsewhere classified; K21.9 Gastro-esophageal reflux disease without esophagitis; K29.70 Gastritis, unspecified, without bleeding; Z87.891 Personal history of nicotine dependence; Z79.84 Long term (current) use of oral hypoglycemic drugs; Z79.899 Other long term (current) drug therapy; Z79.85 Long-term (current) use of injectable non-insulin antidiabetic drugs
CPT/HCPCS: 74240; 80051; 81025; 82310; 82565; 83735; 84100; 84520; 85025; 88307; 94640

== ENCOUNTER → 2023-12-14 | Outpatient (CLI) | payer OTHER | END | disposition home or self-care (01) | LOC: LABPAT 11:20 | PROVIDERS: ATTEND Surgery | DX: Z01.812 Encounter for preprocedural laboratory examination (principal) | CPT/HCPCS: 86850; 86900; 86901 ==

== ENCOUNTER → 2023-12-20 | Outpatient (CLI) | payer OTHER ==
[2023-12-20 15:28] VITALS: BP 109/71; PULSE 77; TEMP 98.2; BMI 37.8
--- NOTE | 2023-12-20 15:39 | P.BASOAP ---
Subjective Progress Note Date: 12/20/23 Principal diagnosis: Morbid obesity Patient returns for reevaluation. Underwent sleeve gastrectomy last Tuesday. Doing quite well. Minimal pain. No nausea or vomiting. Good volume of liquid intake. Has not started protein yet. She has lost 13 pounds since her last weight on Tuesday. Objective - Vital Signs Vital signs: Vital Signs Temp 98.2 F 12/20/23 15:26 Pulse 77 12/20/23 15:26 Resp BP 109/71 12/20/23 15:26 Pulse Ox FiO2 Intake & Output 12/19/23 12/20/23 12/20/23 18:59 06:59 18:59 Weight 102.965 kg - Exam Abdomen: Soft, nondistended, incisions clean and dry, minimal tenderness Assessment/Plan (1) Morbid obesity with BMI of 40.0-44.9, adult Narrative/Plan: 43-year-old female doing well after sleeve gastrectomy. Gradually advance diet to full liquids and focus on protein intake. Continue antiacids. Recheck 2 weeks. Plan: Date: 12/20/23 Initial Weight: 108.862 kg Initial BMI: 39.9 Current Weight: 102.965 kg Current BMI: 37.8 Type of Surgery: Total Volume in Band: Previous Volume: Volume Removed: Volume Added: Band Size:
== END ==
LOC: BARWHC3 14:21
PROVIDERS: ATTEND Surgery
DX: E66.01 Morbid (severe) obesity due to excess calories (principal); F17.200 Nicotine dependence, unspecified, uncomplicated; Z98.84 Bariatric surgery status; Z90.3 Acquired absence of stomach [part of]; Z68.41 Body mass index [BMI] 40.0-44.9, adult
CPT/HCPCS: 97802; G0463; 99211

== ENCOUNTER → 2024-01-03 | Outpatient (CLI) | payer OTHER ==
[2024-01-03 14:39] VITALS: BP 114/62; PULSE 79; RESP 16; TEMP 98; BMI 37.4
--- NOTE | 2024-01-03 16:16 | P.BASOAP ---
Subjective Progress Note Date: 01/03/24 Principal diagnosis: Morbid obesity Patient returns for evaluation. Doing well since last visit. 70 g of protein per day. She has lost 2 pounds since her last visit. No nausea or vomiting. No GERD. Objective - Vital Signs Vital signs: Vital Signs Temp 98 F 01/03/24 14:37 Pulse 79 01/03/24 14:37 Resp 16 01/03/24 14:37 BP 114/62 01/03/24 14:37 Pulse Ox FiO2 Intake & Output 01/02/24 01/03/24 01/03/24 18:59 06:59 18:59 Weight 102.058 kg - Exam Abdomen: Soft, nontender, nondistended, incisions clean and dry Assessment/Plan (1) Morbid obesity with BMI of 40.0-44.9, adult Narrative/Plan: 43-year-old female doing well after recent sleeve gastrectomy. Continue antiacids. Gradually advance diet. Gradually resume normal activities. Check labs at 1 month anjel. Follow-up 3 weeks. Plan: Date: 01/03/24 Initial Weight: 108.862 kg Initial BMI: 39.9 Current Weight: 102.058 kg Current BMI: 37.4 Type of Surgery: Vertical Sleeve Gastrectomy Total Volume in Band: Previous Volume: Volume Removed: Volume Added: Band Size:
== END ==
LOC: BARWHC3 14:30
PROVIDERS: ATTEND Surgery
DX: E66.01 Morbid (severe) obesity due to excess calories (principal); F17.200 Nicotine dependence, unspecified, uncomplicated; Z90.3 Acquired absence of stomach [part of]; Z68.41 Body mass index [BMI] 40.0-44.9, adult; Z71.3 Dietary counseling and surveillance; Z98.84 Bariatric surgery status
CPT/HCPCS: 97803; G0463; 99211

== ENCOUNTER → 2024-01-20 | Outpatient (CLI) | payer OTHER ==
[2024-01-21 02:09] LABS: HCT 44.8 % (37.2-46.3); HGB 14.5 g/dL (12.0-15.0); MCH 27.5 pg (27.0-32.0); MCHC 32.4 g/dL (32.0-37.0); Mean Platelet Volume 12.5 FL (9.5-12.2); NRBC Per 100 WBC 0 X 10*3/uL (0.00-0.01); Platelet Count 242 X 10*3/uL (140-440); RBC 5.27 X 10*6/uL (4.10-5.20); RDW 13.8 % (11.5-14.5); WBC 7.21 X 10*3/uL (4.50-10.00)
[2024-01-21 03:09] LABS: Albumin 4.2 g/dL (3.8-4.9); BUN/Creat Ratio 10.17 Ratio (12.00-20.00); Blood Urea Nitrogen 6.1 mg/dL (9.0-27.0); Calcium 9.5 mg/dL (8.7-10.3); Carbon Dioxide 20.8 mmol/L (21.6-31.8); Chloride 103 mmol/L (96-109); Glucose 133 mg/dL (70-110); Iron 46 UG/DL (50-170); Potassium 4.3 mmol/L (3.5-5.5); Sodium 137 mmol/L (135-145); Total Protein 6.8 g/dL (6.2-8.2)
[2024-01-21 03:10] LABS: ALT 27 U/L (8-44); AST 29 U/L (13-35); Albumin/Globulin Ratio 1.62 Ratio (1.60-3.17); Alkaline Phosphatase 58 U/L (41-126); Globulin 2.6 g/dL (1.6-3.3); Total Bilirubin 0.5 mg/dL (0.3-1.2)
== END | disposition home or self-care (01) ==
LOC: LABPAT 15:23
PROVIDERS: ATTEND Surgery
DX: E55.9 Vitamin D deficiency, unspecified (principal); K90.89 Other intestinal malabsorption; E66.01 Morbid (severe) obesity due to excess calories
CPT/HCPCS: 80053; 82306; 82607; 82746; 83540; 84425; 85027

== ENCOUNTER → 2024-01-24 | Outpatient (CLI) | payer OTHER ==
[2024-01-24 14:27] VITALS: BP 100/67; PULSE 75; RESP 16; TEMP 98.4; BMI 36.4
--- NOTE | 2024-01-24 15:19 | P.BASOAP ---
Subjective Progress Note Date: 01/24/24 Principal diagnosis: Morbid obesity Patient returns for recheck. She is now 5 to 6 weeks out from her sleeve gastrectomy. She had her 1 month labs. Her iron was slightly low otherwise normal. She has had some mild nausea. She admits that she only took omeprazole for a few days after surgery. Says she does not do well taking medications because she forgets to take them. She has lost 6 pounds. She otherwise feels well. No heartburn. No nausea or vomiting. Objective - Vital Signs Vital signs: Vital Signs Temp 98.4 F 01/24/24 14:23 Pulse 75 01/24/24 14:23 Resp 16 01/24/24 14:23 BP 100/67 01/24/24 14:23 Pulse Ox FiO2 Intake & Output 01/23/24 01/24/24 01/24/24 18:59 06:59 18:59 Weight 99.337 kg - Exam Abdomen: Soft, nontender, nondistended, incisions clean and dry Assessment/Plan (1) Morbid obesity with BMI of 40.0-44.9, adult Narrative/Plan: Patient doing well after recent sleeve gastrectomy. Continue dietary advancement. Begin exercise routine. Continue multivitamins. Will recheck iron with next lab draw. Follow-up 1 month. Plan: Date: 01/24/24 Initial Weight: 108.862 kg Initial BMI: 39.9 Current Weight: 99.337 kg Current BMI: 36.4 Type of Surgery: Vertical Sleeve Gastrectomy Total Volume in Band: Previous Volume: Volume Removed: Volume Added: Band Size:
== END ==
LOC: BARWHC3 14:11
PROVIDERS: ATTEND Surgery
DX: E66.01 Morbid (severe) obesity due to excess calories (principal); F17.200 Nicotine dependence, unspecified, uncomplicated; Z98.84 Bariatric surgery status; Z90.3 Acquired absence of stomach [part of]; Z71.3 Dietary counseling and surveillance; Z68.36 Body mass index [BMI] 36.0-36.9, adult
CPT/HCPCS: 99211

== ENCOUNTER → 2024-02-21 | Outpatient (CLI) | payer OTHER ==
--- NOTE | 2024-02-21 13:10 | P.BASOAP ---
Subjective Progress Note Date: 02/21/24 Principal diagnosis: Morbid obesity Patient doing well today. Says that she has noticed decrease in the amount of food she can eat. No vomiting. Only had reflux on 1 occasion. Not taking antiacids. She started exercising more regularly. She has lost 9 pounds since last visit. Objective - Vital Signs Vital signs: Intake & Output 02/20/24 02/21/24 02/21/24 18:59 06:59 18:59 Weight 108.862 kg - Exam Abdomen: Soft, nontender, nondistended Assessment/Plan (1) Morbid obesity with BMI of 40.0-44.9, adult Narrative/Plan: Patient doing well at this time. Continue dietary and exercise regimen. Follow-up 4 to 6 weeks. Check 3-month labs at that time. Plan: Date: Initial Weight: 108.862 kg Initial BMI: Current Weight: 108.862 kg Current BMI: Type of Surgery: Total Volume in Band: Previous Volume: Volume Removed: Volume Added: Band Size:
[2024-02-21 13:13] VITALS: BP 118/75; PULSE 71; TEMP 98.1; BMI 39.9
== END ==
LOC: BARWHC3 12:50
PROVIDERS: ATTEND Surgery
CPT/HCPCS: 99211

== ENCOUNTER → 2024-04-03 | Outpatient (CLI) | payer OTHER ==
[2024-04-03 13:54] VITALS: BP 108/73; PULSE 60; RESP 16; TEMP 97.6; BMI 33.4
--- NOTE | 2024-04-03 15:41 | P.BASOAP ---
Subjective Progress Note Date: 04/03/24 Principal diagnosis: Morbid obesity Patient returns for recheck. Underwent sleeve gastrectomy in November. Last seen on 02/20. Patient says she recently developed a cold. Doing better. No antiacids. Denies nausea vomiting. Complaining of some hair loss. Excellent protein intake. Objective - Vital Signs Vital signs: Vital Signs Temp 97.6 F 04/03/24 13:51 Pulse 60 04/03/24 13:51 Resp 16 04/03/24 13:51 BP 108/73 04/03/24 13:51 Pulse Ox FiO2 Intake & Output 04/02/24 04/03/24 04/03/24 18:59 06:59 18:59 Weight 91.172 kg - Exam Abdomen: Soft, nontender, nondistended Assessment/Plan (1) Morbid obesity with BMI of 40.0-44.9, adult Narrative/Plan: Patient doing well at this time. Continue exercise and dietary regimen. Check 3-month labs at this time. Follow-up 6 weeks. Plan: Date: 04/03/24 Initial Weight: 108.862 kg Initial BMI: 39.9 Current Weight: 91.172 kg Current BMI: 33.4 Type of Surgery: Vertical Sleeve Gastrectomy Total Volume in Band: Previous Volume: Volume Removed: Volume Added: Band Size:
== END | disposition home or self-care (01) ==
LOC: BARWHC3 13:07
PROVIDERS: ATTEND Surgery
DX: E66.01 Morbid (severe) obesity due to excess calories
CPT/HCPCS: 99211

== ENCOUNTER → 2024-10-25 | Outpatient (CLI) | payer OTHER ==
--- NOTE | 2024-10-25 08:58 | MM ---
Reason for Exam: Clinical finding. Last mammogram was performed 1 year(s) and 1 month(s) ago. Patient History: Menarche at age 13. First Full-Term at age 21. Patient has history of breast feeding. Risk Values: Mirlande 5 year model risk: 0.5%. NCI Lifetime model risk: 7.9%. Tissue Density: The breasts are heterogeneously dense, which may obscure small masses. Findings: Analyzed By CAD. Asymmetric more prominent tissue appears to correspond to palpable abnormality upper outer aspect but sonographic evaluation is advised. Also subtle distortion and focal asymmetry in the left breast upper outer aspect is more prominent from prior. Additional left breast imaging was performed. Overall Assessment: Incomplete: need additional imaging evaluation, BI-RAD 0 Management: Diagnostic Breast Ultrasound of both breasts. Bilateral breast ultrasound. Results were given to the patient verbally at the time of exam. Patient should continue monthly self-breast exams. A clinical breast exam by your physician is recommended on an annual basis. This exam should not preclude additional follow-up of suspicious palpable abnormalities. Note on Mirlande scores and lifetime risk: 1. A Mirlande score greater than 3% is considered moderate risk. If this is the case, consider specialist referral to assess eligibility for a risk reducing agent. 2. If overall lifetime risk for the development of breast cancer is 20% or higher, the patient may qualify for future screening with alternating mammogram and breast MRI. [facility], , 10/25/2024 8:55 AM. Electronically signed and approved by: Shaggy Ortiz M.D.
--- NOTE | 2024-10-25 09:35 | USB ---
Reason for Exam: Clinical finding. Patient History: Menarche at age 13. First Full-Term at age 21. Patient has history of breast feeding. Risk Values: Mirlande 5 year model risk: 0.5%. NCI Lifetime model risk: 7.9%. Technique: Method: Targeted. Prior Study Comparison: 09/29/2023 Bilateral MG screening mammo w [facility], [facility]. 10/05/2023 Left MG 3D work up w/cad , [facility]. Findings: The upper outer quadrant of the left breast, the lateral section of the breast of the right breast, the area of palpable concern of the right breast, the axilla of both breasts and the retroareolar of both breasts were scanned. Targeted ultrasound bilaterally. No solid or cystic masses are identified in the left breast. Right breast shows benign appearing subcentimeter lymph node in the axilla. There is a 1.1 x 0.8 cm hypoechoic round a vascular lesion at 10:00 position 7 cm distance from nipple without posterior features corresponding to the palpable abnormality. Overall Assessment: Suspicious, BI-RAD 4 Management: Ultrasound Core Biopsy of the right breast. Probable new solid mass at the palpable abnormality. Tissue sampling is advised. A clinical breast exam by your physician is recommended on an annual basis and results should be correlated with mammographic findings. This exam should not preclude additional follow-up of suspicious palpable abnormalities. Results were given to the patient verbally at the time of exam. [facility], , 10/25/2024 9:32 AM. Electronically signed and approved by: Shaggy Ortiz M.D.
== END | disposition home or self-care (01) ==
LOC: RADMAMWWP 08:21
PROVIDERS: ATTEND Family Medicine
DX: N63.22 Unspecified lump in the left breast, upper inner quadrant (principal); R92.333 Mammographic heterogeneous density, bilateral breasts
CPT/HCPCS: 77066; 76642; G0279; 77062

== ENCOUNTER → 2024-11-07 | Day surgery (SDC) | payer OTHER ==
--- NOTE | 2024-11-09 12:44 | MM ---
Reason for Exam: Post Procedure Mammogram. Last screening mammogram was performed less than 1 month ago. Patient History: Menarche at age 13. First Full-Term at age 21. Patient has history of breast feeding. Risk Values: [place] 5 year model risk: 0.5%. NCI Lifetime model risk: 7.9%. Prior Study Comparison: 09/29/2023 Bilateral MG screening mammo w CAD, [facility]. 10/05/2023 Left MG 3D work up w/cad LT, [facility]. 10/25/2024 Bilateral US breast limited BILAT, [facility]. 10/25/2024 Bilateral MG 3D diag mammo w/cad TERESE, [facility]. Tissue Density: Right: The breasts are heterogeneously dense, which may obscure small masses. Pathology Description: Location: 10 o'clock. Marker Left Behind. Needle Type: Mammotome Cores: 4 Gauge: 13 The procedure of ultrasound guided core biopsy was explained to the patient. Benefits, alternatives, and risks were discussed. An informed consent was then obtained. The patient was placed in supine positioning for imaging and for the procedure. Preprocedure ultrasound redemonstrates a tiny clock position 7 cm distance from nipple an oval approximately 10 mm isoechoic avascular lesion without posterior features fairly well-circumscribed. The overlying skin was prepped and draped in usual sterile fashion. Lidocaine buffered with bicarbonate was used as anesthetic into the skin and subcutaneous tissue up to area of concern in the right breast. Under ultrasound guidance, a vacuum assisted biopsy gun device was used to obtain 4 core samples. Following this, a biopsy clip was left in lesion. The patient tolerated the procedure well without any immediate complication. The patient was kept in the radiology department for short stay after the procedure and then discharged home in stable condition. Postprocedure mammogram: The patient was transferred to mammography for physician ordered post procedure mammogram for clip placement verification. Post procedure mammogram demonstrates appropriate placement of clip. Impression: Successful, uncomplicated ultrasound guided core biopsy of area of concern in the right breast, full pathology results to follow. Low to intermediate index of suspicion noted at time of procedure. 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 [facility], , 11/07/2024 9:57 AM. Pathology Results: Result: Benign, Fibroadenoma. Pathology and radiology were reviewed. Findings are concordant. RIGHT BREAST, 10:00, NEEDLE CORE BIOPSY: Fibroadenoma and background fibrocystic changes. Overall Assessment: Benign Assessment: MG diagnostic mammo RT wo CAD - Right: Benign, BI-RAD 2. Management: Diagnostic Breast Ultrasound of the right breast in 6 months. Electronically signed and approved by: Shaggy Ortiz M.D.
== END ==
LOC: RADUSWWP 07:09
PROVIDERS: ATTEND Family Medicine
DX: D24.1 Benign neoplasm of right breast (principal)
CPT/HCPCS: 88305; 77065; 19083; A4648